=== PATIENT | male | born 1950 | race Caucasian/White ===

== ENCOUNTER → 2016-11-23 | Outpatient (CLI) | payer MEDICAID ==
[2016-11-23 10:41] LABS: Appearance,Urine Clear (Clear); Basophils # (A) 0.1 k/uL (0-0.2); Basophils % (A) 1 %; Bilirubin,Urine Negative (Negative); CH 31.9; CHCM 34.5; Eosinophils # (A) 0.1 k/uL (0-0.7); Eosinophils % (A) 1 %; Glucose,Urine (UA) Negative (Negative); HDW 2.88; HGB 16.6 gm/dL (13.0-17.5); Ketones,Urine Negative (Negative); Leukocyte Esterase,Urine Negative (Negative); Luc # (Auto) 0.06; Luc % (Auto) 1; Lymphocytes % (A) 28 %; MCH 30.9 pg (25.0-35.0); MCHC 33.2 g/dL (31.0-37.0); MCV 93.1 fL (80.0-100.0); Mean Platelet Volume 7.4; Monocytes # (A) 0.3 k/uL (0-1.0); Monocytes % (A) 5 %; Neutrophils # (A) 4.7 k/uL (1.3-7.7); Neutrophils % (A) 65 %; Nitrite,Urine Negative (Negative); Protein,Urine Negative (Negative); RBC 5.37 m/uL (4.30-5.90); RDW 13.5 % (11.5-15.5); Specific Gravity,Urine 1.022 (1.001-1.035); UA Billing (MACRO vs. MICRO) CHEM; Urobilinogen,Urine <2.0 mg/dL (<2.0); WBC 7.2 k/uL (3.8-10.6)
[2016-11-23 10:51] LABS: INR 1.2 (<1.1); Prothrombin Time 11.6 sec (9.0-12.0)
[2016-11-23 10:57] LABS: Partial Thromboplastin Time 21.8 sec (22.0-30.0)
[2016-11-23 11:10] LABS: ALT 93 U/L (21-72); AST 51 U/L (17-59); Alkaline Phosphatase 64 U/L (38-126); Anion Gap 12 mmol/L; Blood Urea Nitrogen 23 mg/dL (9-20); Carbon Dioxide 31 mmol/L (22-30); Chloride 100 mmol/L (98-107); Glucose 174 mg/dL (74-99); Non-African American GFR(MDRD) >60 (>60 ml/min/1.73 sqM); Potassium 4.8 mmol/L (3.5-5.1); Sodium 143 mmol/L (137-145); Total Bilirubin 1.4 mg/dL (0.2-1.3); Total Protein 7.2 g/dL (6.3-8.2)
== END | disposition home or self-care (01) ==
LOC: LABPAT 09:59
PROVIDERS: ATTEND Orthopaedic Surgery Sports Medicine
DX: Z01.812 Encounter for preprocedural laboratory examination (principal)
CPT/HCPCS: 80053; 81003; 85025; 85610; 85730; 87070

== ENCOUNTER → 2016-12-19 | Outpatient (CLI) | payer MEDICAID ==
--- NOTE | 2016-12-19 12:58 | MR ---
MR lumbar spine wo con Low back pain Multiplanar, multiecho imaging of the lumbar spine was obtained without contrast on a 3 Kristy magnet. REFERENCE:None. FINDINGS: Paraspinal soft tissues are normal. Vertebral body height and alignment are maintained. Cord signal is maintained. The conus ends normally at the level of the mid body of L1. At T12-L1, no definite abnormality is seen. At L1-2, there is mild facet arthropathy. At L2-3, there is mild capsulitis and hypertrophic changes within the facets. At L3-4, there is disc space loss. There is a small annular rent. There is a broad-based disc protrus ion extending into the intervertebral foramina causing mild, bilateral intervertebral foraminal narro wing. There are mild hypertrophic changes and capsulitis within the facets. At L4-5, there is mild disc space loss. There is a diffuse disc displacement extending into the inter vertebral foramina and causing mild, bilateral intervertebral foraminal narrowing. There are moderate hypertrophic changes within the facets. There is moderate central canal stenosis. At L5-S1, no definite abnormality is seen. IMPRESSION: 1. MODERATE CENTRAL CANAL STENOSIS, L4-5. 2. DIFFUSE FACET ARTHROPATHY. 3. BILATERAL INTERVERTEBRAL FORAMINAL NARROWING, L3-4 AND L4-5, MORE MARKED AT L3-4. 4. ANNULAR RENT WITH BROAD-BASED PROTRUSION, L3-4.
== END | disposition home or self-care (01) ==
LOC: RADMRIMAIN 11:37
PROVIDERS: ATTEND Orthopaedic Surgery Orthopaedic Surgery of the Spine
DX: M48.06 Spinal stenosis, lumbar region (principal); M99.73 Connective tissue and disc stenosis of intervertebral foramina of lumbar region; M51.26 Other intervertebral disc displacement, lumbar region; M46.86 Other specified inflammatory spondylopathies, lumbar region
CPT/HCPCS: 72148

== ENCOUNTER → 2018-09-17 | Outpatient (CLI) | payer MEDICARE ==
--- NOTE | 2018-09-18 07:20 | US ---
EXAMINATION TYPE: US bladder DATE OF EXAM: 09/17/2018 COMPARISON: NONE CLINICAL HISTORY: R35.1 Nocturia; R35.0 Frequent urination. EXAM MEASUREMENTS: Post Void Residual Volume: 8.58 mL Urinary bladder is anechoic. Bladder is not well distended. Color Doppler performed to assess ureteral jets. Bilateral Jets seen: Yes Normal Post Void Residual (less than 50ml): Yes IMPRESSION: There may be some limitations of the exam as described.
== END | disposition home or self-care (01) ==
LOC: RADUSWWP 15:32
PROVIDERS: ATTEND Family Medicine
DX: R35.1 Nocturia (principal); R35.0 Frequency of micturition
CPT/HCPCS: 76857

== ENCOUNTER 2019-05-16 13:39 | Emergency (ER) | payer MEDICARE ==
[2019-05-16 13:55] VITALS: TEMP 98.1
[2019-05-16] MEDS ORDERED: KETOROLAC 30 MG/ML 1 ML VIAL IM STA (14:18)
--- NOTE | 2019-05-16 14:49 | XR ---
EXAMINATION TYPE: XR Hip Complete LT DATE OF EXAM: 05/16/2019 COMPARISON: NONE HISTORY: Left hip pain after fall a few months ago TECHNIQUE: 2 views of the left hip were obtained FINDINGS: There is an old healed left acetabular fracture that appears well-corticated. No acute frac ture of the left hip is seen. Mild left femoral acetabular arthropathy is noted. Mild left sacroiliac joint space sclerosis is also noted. IMPRESSION: Old left acetabular fracture appears healed. No acute fracture of the left hip. Mild femo ral acetabular arthropathy.
--- NOTE | 2019-05-16 15:44 | ED ---
General Adult HPI - General Chief complaint: Extremity Injury, Lower Stated complaint: Left Hip Pain Time Seen by Provider: 05/16/19 13:57 Source: patient Mode of arrival: wheelchair Limitations: no limitations - History of Present Illness Initial comments: Patient is a 69-year-old male presents emergency Department with left hip pain. Patient reports a karate history of left hip pain that has turned acute or the past 2 days. Patient reports he turned to the right and felt a "pop"which was followed by acute pain. Patient reports the pain is exacerbated with hip flexion and any weightbearing. Patient reports the pain is alleviated with rest or no weightbearing. Patient reports taking ibuprofen and Tylenol for pain control. Patient denies any numbness, tingling or pain radiating distally to the right lower extremity. Patient denies saddle paresthesia or urinary incontinence. - Related Data Home Medications Medication Instructions Recorded Confirmed ALPRAZolam [Xanax] 0.25 mg PO BID PRN 03/25/17 03/25/17 Atenolol/Chlorthalidone 1 each PO DAILY 03/25/17 03/25/17 [Atenolol-Chlorthalidone 100-25] Atorvastatin [Lipitor] 80 mg PO HS 03/25/17 03/25/17 Allergies Allergy/AdvReac Type Severity Reaction Status Date / Time No Known Allergies Allergy Verified 05/16/19 13:49 Review of Systems ROS Statement: Those systems with pertinent positive or pertinent negative responses have been documented in the HPI. ROS Other: All systems not noted in ROS Statement are negative. Past Medical History Past Medical History: Cancer, Hyperlipidemia, Hypertension, Osteoarthritis (OA) Additional Past Medical History / Comment(s): CURRENTLY HAS CALL IN TO SURGEON R/T COLD SYMPTOMS. HX SKIN CAN ON EAR. VERTIGO History of Any Multi-Drug Resistant Organisms: None Reported Past Surgical History: Hernia Repair, Orthopedic Surgery Additional Past Surgical History / Comment(s): LT KNEE SCOPE Past Anesthesia/Blood Transfusion Reactions: Motion Sickness Past Psychological History: Anxiety Smoking Status: Former smoker Past Alcohol Use History: Occasional Past Drug Use History: None Reported - Past Family History Mother Family Medical History: No Reported History General Exam Limitations: no limitations General appearance: alert, in no apparent distress Head exam: Present: atraumatic, normocephalic, normal inspection Eye exam: Present: normal appearance, PERRL, EOMI Pupils: Present: normal accommodation ENT exam: Present: normal exam Neck exam: Present: normal inspection Respiratory exam: Present: normal lung sounds bilaterally Cardiovascular Exam: Present: regular rate, normal rhythm, normal heart sounds Extremities exam: Present: normal inspection, tenderness (Tenderness on left hip with palpation.), normal capillary refill, other (+2 dorsalis pedis and posterior tibialis, bilaterally.). Absent: full ROM (Limited range of motion due to pain.) Back exam: Present: normal inspection Neurological exam: Present: alert, oriented X3 Psychiatric exam: Present: normal affect, normal mood Skin exam: Present: warm, intact, normal color Course Vital Signs 05/16/19 05/16/19 05/16/19 13:51 15:25 16:24 Temperature 98.1 F Pulse Rate 66 86 80 Respiratory 18 16 18 Rate Blood Pressure 146/87 134/72 122/78 O2 Sat by Pulse 98 98 98 Oximetry Medical Decision Making - Medical Decision Making Patient is 69-year-old male presents emergency Department with left hip pain. X-ray of the left hip is suggestive of an acetabular fracture of the left hip which could be the reason of the chronic pain. imaging is also positive for acetabular arthropathy. Patient was given Toradol for pain and will be discharged with Flexeril. Patient advised to follow up with orthopedics. Patient advised to return to emergency department if symptoms worsen. Case discussed with physician. Disposition Clinical Impression: Hip pain Disposition: HOME SELF-CARE Condition: Stable Instructions (If sedation given, give patient instructions): Hip Pain (ED) Additional Instructions: Please take prescribed medication as directed. Please alternate between Tylenol and ibuprofen for pain control. Please follow with orthopedics. Please return to emergency department if symptoms worsen. Is patient prescribed a controlled substance at d/c from ED?: No Referrals: Vito Ruiz MD [Primary Care Provider] - 1-2 days Henri An MD [STAFF PHYSICIAN] - 1-2 days Time of Disposition: 15:44
[2019-05-16 16:25] VITALS: BP 122/78; PULSE 80; RESP 18
== END 2019-05-16 16:30 | disposition home or self-care (01) ==
LOC: EC 13:39
DX: M25.552 Pain in left hip (principal); M16.12 Unilateral primary osteoarthritis, left hip; E78.5 Hyperlipidemia, unspecified; I10 Essential (primary) hypertension; F41.9 Anxiety disorder, unspecified; Z79.899 Other long term (current) drug therapy; Z87.891 Personal history of nicotine dependence; Z85.828 Personal history of other malignant neoplasm of skin
CPT/HCPCS: 73502; 99283; 96372; J1885

== ENCOUNTER → 2020-09-12 | Outpatient (CLI) | payer MEDICARE ==
[2020-09-12 16:22] LABS: HCT 42.1 % (39.0-53.0); HGB 14.1 gm/dL (13.0-17.5); MCH 31.8 pg (25.0-35.0); MCHC 33.5 g/dL (31.0-37.0); Platelet Count 190 k/uL (150-450); RBC 4.43 m/uL (4.30-5.90); RDW 13.3 % (11.5-15.5); WBC 4.3 k/uL (3.8-10.6)
[2020-09-12 16:29] LABS: ALT 26 U/L (4-49); AST 30 U/L (17-59); African American GFR (CKD) >90 (>60 ml/min/1.73 sqM); Alkaline Phosphatase 61 U/L (38-126); Anion Gap 7 mmol/L; Blood Urea Nitrogen 13 mg/dL (9-20); Calcium 8.8 mg/dL (8.4-10.2); Carbon Dioxide 25 mmol/L (22-30); Chloride 107 mmol/L (98-107); Glucose 218 mg/dL (74-99); Non-African American GFR(CKD) 89 (>60 ml/min/1.73 sqM); Sodium 139 mmol/L (137-145); Total Bilirubin 0.8 mg/dL (0.2-1.3); Total Protein 6.6 g/dL (6.3-8.2)
[2020-09-12 16:38] LABS: INR 1.1 (<1.2); Partial Thromboplastin Time 22.4 sec (22.0-30.0); Prothrombin Time 11.3 sec (9.0-12.0)
[2020-09-12 17:12] LABS: Appearance,Urine Clear (Clear); Bilirubin,Urine Negative (Negative); Blood,Urine Negative (Negative); Color,Urine Yellow; Glucose,Urine (UA) Negative (Negative); Ketones,Urine Negative (Negative); Leukocyte Esterase,Urine Negative (Negative); Nitrite,Urine Negative (Negative); Protein,Urine Negative (Negative); Specific Gravity,Urine 1.023 (1.001-1.035); Urobilinogen,Urine <2.0 mg/dL (<2.0)
== END | disposition home or self-care (01) ==
LOC: LABPAT 15:20
PROVIDERS: ATTEND Orthopaedic Surgery Sports Medicine
DX: Z01.818 Encounter for other preprocedural examination (principal); M17.12 Unilateral primary osteoarthritis, left knee; Z01.812 Encounter for preprocedural laboratory examination
CPT/HCPCS: 80053; 81003; 85027; 85610; 85730; 87070

== ENCOUNTER 2020-09-15 09:24 | Inpatient (IN) | payer MEDICARE ==
[2020-09-12 09:49] VITALS: BMI 29.9
[~2020-09-15 09:24] MED LIST: ACETAMINOPHEN TAB 500 MG TAB PO ONE; DEXAMETHASONE SOD PHOSPHATE 10 MG/ML 1 ML VIAL IV ONE; GABAPENTIN 300 MG CAP PO ONE; HYDROmorphone 0.5 MG/0.5 ML SYRINGE IVP PRN; LACTATED RINGERS 1,000 ML IV SCH; MELOXICAM 7.5 MG TAB PO ONE; MIDAZOLAM 2 MG/2 ML VIAL IV PRN; ONDANSETRON 4 MG/2 ML VIAL IVP ONE; ROPIVACAINE 246.25 MG, EPINEPHrine 0.5 MG, KETOROLAC 30 MG, cloNIDine HCL/PF 80 MCG, WA... MISCELLANE ONE; TRANEXAMIC ACID 1,000 MG in SODIUM CHLORIDE 0.9% 100 ML IVPB ONE
[2020-09-15 09:55] LABS: Glucose,Whole Blood 135 mg/dL (75-99)
[2020-09-15] MEDS ORDERED: SCOPOLAMINE 1.5MG/72HR PATCH TRANSDERM ONE (09:59)
[2020-09-15] MEDS ORDERED: PROPOFOL 10 MG/ML 20 ML VIAL IV ONE (10:19)
[2020-09-15] MEDS ORDERED: fentaNYL (PF) 50 MCG/ML 2 ML AMP ONE (10:19)
[2020-09-15] MEDS ORDERED: ePHEDrine SULFATE/0.9% NACL/PF 50 MG/5 ML SYRINGE IV ONE (10:19)
[2020-09-15] MEDS ORDERED: MIDAZOLAM 2 MG/2 ML VIAL ONE (10:19)
[2020-09-15] MEDS ORDERED: TRANEXAMIC ACID 1,000 MG/10 ML VIAL ONE (10:19)
[2020-09-15] MEDS ORDERED: SODIUM CHLORIDE 0.9% 100 ML BAG ONE (10:19)
[2020-09-15] MEDS ORDERED: MAGNESIUM HYDROXIDE 2,400 MG/10 ML CUP PO PRN (10:38)
[2020-09-15] MEDS ORDERED: ONDANSETRON 4 MG/2 ML VIAL IVP PRN (10:38)
[2020-09-15] MEDS ORDERED: NA PHOS,M-B/NA PHOS,DI-BA 133 ML ENEMA RECTAL PRN (10:38)
[2020-09-15] MEDS ORDERED: TEMAZEPAM 15 MG CAP PO PRN (10:38)
[2020-09-15] MEDS ORDERED: diazePAM 5 MG TAB PO PRN (10:38)
[2020-09-15] MEDS ORDERED: ACETAMINOPHEN TAB 325 MG TAB PO PRN (10:38)
[2020-09-15] MEDS ORDERED: HYDROmorphone 0.5 MG/0.5 ML SYRINGE IVP PRN ×2 (10:38)
[2020-09-15] MEDS ORDERED: bisacodyL 10 MG SUPP RECTAL PRN (10:38)
[2020-09-15] MEDS ORDERED: traMADol 50 MG TAB PO PRN (10:38)
[2020-09-15] MEDS ORDERED: NALOXONE 0.4 MG/ML 1 ML VIAL IV PRN (10:38)
[2020-09-15] MEDS ORDERED: HYDROcodone/APAP 5-325MG 1 EACH TAB PO PRN (10:38)
[2020-09-15] MEDS ORDERED: ceFAZolin 3,000 MG in SODIUM CHLORIDE 0.9% IRRIGATIO 3,000 ML IRRIGATION ONE (10:54)
[2020-09-15] MEDS ORDERED: LACTATED RINGERS 1,000 ML IV ONE (12:01)
[2020-09-15] MEDS ORDERED: ROPIVACAINE 0.2%-NS ON-Q PUMP 1,090 MG, EMPTY PAIN BALL 1 EACH MISCELLANE PRN (12:18)
--- NOTE | 2020-09-15 12:18 | P.ANPRN ---
Procedure Note - Anesthesia - Nerve Block Performed Left Adductor Canal Infusion Time Out Performed: Yes (1000) Date of Procedure: 09/15/20 Procedure Start Time: : Procedure Stop Time: :08 Location of Patient: PreOp Indication: Acute Post-Operative Pain, Requested by Surgeon Specifically requested for management of pain by DrWinnie: Henri An Sedation Type: Sedate with meaningful contact maintained Preparation: Sterile Prep Position: Supine Catheter Depth at Skin (cm): 6 Catheter: Indwelling Needle Types: Pajunk Needle Gauge: 21 Ultrasound used to visualize needle placement: Yes Ultrasound used to observe medication spread: Yes Injectate: 0.5% Ropivacaine (see comment for volume) (20cc) Blood Aspirated: No Pain Paresthesia on Injection Noted: No Resistance on Injection: Normal Image Stored and Saved: Yes Events: Uneventful and Well Tolerated
--- NOTE | 2020-09-15 13:05 | XR ---
Left knee HISTORY: Postop 2 views of left knee Patient is status post left knee arthroplasty. There is anatomic alignment. Lucency is present in the soft tissues. No fracture or dislocation. IMPRESSION: Orthopedic follow-up.
[2020-09-15] MEDS: LACTATED RINGERS 1,000 ML IV SCH ×2 (14:25→20:31)
--- NOTE | 2020-09-15 15:41 | OP ---
OPERATIVE REPORT DATE OF PROCEDURE: 09/15/2020 SURGEON: Henri An M.D. KNITTER HAND: Wesley Calzada PA-C. PREOPERATIVE DIAGNOSIS: Left knee osteoarthrosis. POSTOPERATIVE DIAGNOSIS: Left knee osteoarthrosis. OPERATION: Left total knee arthroplasty. ANESTHESIA: Spinal with sedation. ESTIMATED BLOOD LOSS: 100 mL. TOURNIQUET: Tourniquet time was 55 minutes at 250 mmHg. COMPLICATIONS: None apparent. DRAINS: None. DISPOSITION: Post-Anesthesia Care Unit INDICATIONS: Isidro is a very pleasant 70-year-old male with longstanding history of left knee pain. History and physical examination are consistent with advanced left knee osteoarthrosis. He has been through significant nonoperative management up to this point. Further treatment options were discussed, and he decided to go forward with left total knee arthroplasty. Risks of the procedure were discussed with him in detail. These risks include but are not limited to risk of infection, nerve damage, bleeding, pain, and a small risk of deep vein thrombosis which could lead to fatal pulmonary embolism. There is also a risk of loosening of the implant which could require revision operation. The patient understands these risks. All of his questions were answered to his satisfaction. Appropriate informed consent was obtained. DESCRIPTION OF PROCEDURE: Patient was identified in the preoperative holding area. Surgical site was marked by both the patient and myself. He was given 2 grams of Ancef IV for prophylactic purposes. He was then transferred to the operative suite, where he was placed supine on the operating room table. Spinal anesthetic was then administered and dosed per the anesthesia department without apparent complication. Examination under anesthesia was then performed. The patient was 5 to 7 degrees shy of full extension. He had 95 degrees of flexion, and the medial collateral ligament, lateral collateral ligament and posterior cruciate ligaments were stable. Tourniquet was then placed high on the left upper thigh, well padded in preparation for surgery. The patient's left lower extremity was then prepped and draped in the usual sterile fashion. A standard surgical pause was undertaken to ensure that we were operating on the correct site and that appropriate preoperative antibiotics had been given. All staff in the room were in agreement and we proceeded. The outlines of the patella were marked with a surgical pen. A planned 12 cm vertical incision centered over the patella was marked with a surgical pen. The leg was then exsanguinated with an Esmarch dressing. The knee was then flexed and the tourniquet was inflated to 250 mmHg. The total tourniquet time for the procedure was 55 minutes. Incision was then made with a 10-blade scalpel. Dissection was carried down sharply to the overlying fascia. Great care was taken to minimize the skin flaps. The knee was then exposed using a standard medial parapatellar approach. A small cuff of quadriceps tendon was then left for suturing. He was in quite a bit of varus preoperatively. A standard medial release was then made. The superficial medical collateral ligament was dissected off of the bone around to the posterior aspect of the proximal tibia. The medial meniscus was then excised as well. The lateral meniscus was also released anteriorly. The leg was then externally rotated. The patella was everted. The knee was flexed. The retractors were then placed to protect the collateral ligaments. I then proceeded to remove the infrapatellar fat pad. This was excised sharply tangentially with the fibers of the patellar tendon. I then proceeded to remove the peripheral osteophytes. This was done with a rongeur. I then proceeded with the distal femoral resection. He had a fairly significant flexion contracture. A planned 11 mm resection was then done. The femoral canal was then entered in the midline of the femur, approximately 10 mm anterior to the origin of the posterior cruciate ligament. The maria was then advanced down the center of the femur and placed intramedullary. Based on the preoperative radiographs, the angle between the anatomic and mechanical axis of the femur was approximately 4-5 degrees. The valgus angle of the distal femoral cutting guide was then set at 4 degrees for the left knee. The distal femoral cutting guide was then advanced over the intramedullary maria. This was seated firmly against the femur. I then, as mentioned, planned to take 11 mm off the distal femur. The cutting block was then secured onto the femur with pins. The jig was removed and the distal femoral cut was made through the slot of the block. The pins were then removed. The distal femoral cutting block was removed. The accuracy of the distal femoral cuts was checked with 2 flat bars. I then proceeded with femoral sizing. The posterior referencing sizing guide was held firmly against the resected distal surface of the femur. The posterior condyles were resting on the posterior plane of the guide. The sizing stylus was then placed onto the anterior femur. The size was measured as a size 9. I then assessed for femoral rotation. The plan was for 3 degrees of external rotation. Three degrees of external rotation was placed onto the jig. These holes were then marked. I then confirmed the rotation by 3 separate methods. This was done using the epicondylar axis as well as Whitesides line and posterior referencing. It was deemed that the external rotation was proper. I then went forward with placing the femoral cutting block. This was placed over the previously placed pin holes. The Efra wing was then placed onto the anterior slots to ensure that we would not notch the anterior femur with the anterior femoral cut. I then proceeded with the anterior femoral cut. This was flush with the anterior cortex of the femur. The posterior cuts were then made followed by the anterior chamfer cut and then the posterior chamfer cut. The cutting block was then removed. Throughout the resection, the collateral ligaments were protected with retractors. I then placed a trial size 9 femur. It was slightly wide, but the narrow fit very nicely, and it fit flush with the distal end of the femur. The drill holes were then made. I then proceeded with the tibial cut. I planned for a cruciate-retaining knee. The guide was placed and set for varus, valgus and for slope. The height was set for an approximate 2 mm resection from the medial tibial plateau, which was the lower side. I was happy with the alignment and amount of resection. The cutting block was then pinned to the proximal tibia. The alignment maria was removed and the proximal tibia was resected with a reciprocating saw. Again this was done with retractors protecting the collateral ligaments as well as the posterior cruciate ligament. I then proceeded to evaluate the flexion and extension gaps. A 10 mm block was then placed. The flexion and extension gaps were equal. I then proceeded with resection of the posterior osteophytes. He had fairly extensive posterior osteophytes. This was done using a curved osteotome. This resected the posterior osteophytes, and posterior capsule stripping was done off the posterior aspect of the femur at this time. The osteophytes were then removed. I then proceeded with resection of the patella. The thickness of the patella was measured using the caliper. The thickness was 22 mm. The thickness of the anticipated patellar dome was taken into account. Resection was then performed and confirmed to be equal in 4 quadrants using a caliper. Approximately 14 mm of bone remained after resection. A 32 x 8.5 mm standard patellar trial was then placed. The holes were drilled and the trial was then placed. I then proceeded with sizing the tibial plate. A size E tibial plate fit very nicely. I then placed the trial femur, the tibial tray and the patellar button. A 10 mm trial tibial insert was also placed. The components fit very nicely. He had full extension and flexion. The extension and flexion gaps were equal and stable to both varus and valgus stress. The patella tracked appropriately. The tibial tray rotation was then marked with a Bovie. This was externally rotated properly. I then proceeded with the tibial preparation. First we drilled femoral holes and removed the femoral component. The tibial tray was then set for proper external rotation as well as mediolateral placement onto the tibia. It was then pinned into place. I then proceeded with punching the keel. I then decided to proceed with cementing of all of our components. The knee was thoroughly irrigated with sterile saline solution via pulse lavage. The lateral geniculate artery was identified and cauterized. All blood was removed from the bone of the tibia, femur and patella with pulse lavage. I then proceeded with cementing. Two packs of antibiotic bone cement were prepared on the back table by the surgical nurse. I then proceeded with cementing of the tibia first. The cement was impacted into the keel as well as deeply seated into the bone. A second coat of cement was then placed. The tibia was then impacted into place. Excess cement was removed with Shannon's and jokers. I then proceeded with cementing of the femoral component. The femoral component was also cemented using standard technique. Excess cement was removed. A 10 mm trial insert was then placed into the knee. It was brought into full extension with a constant axial load placed until the cement had hardened. The patellar component was then cemented. This was held firmly with a compressive device until the cement had dried. When the cement had dried, the knee was taken out of extension. All excess cement was removed from around the prosthesis. I then trialed the knee with a 10 mm insert. The flexion and extension gaps were appropriate. The knee was stable. It came into full extension. I decided to go forward with a 10 mm cross-linked cruciate-retaining tibial insert. Polyethylene was then placed onto the tibial tray and locked into place. The knee was then reduced. The knee was again further irrigated with sterile saline solution with antibiotic added. The tourniquet was then deflated. The total tourniquet time for the procedure was 55 minutes at 250 mmHg. Final components were Tomas Persona size 9 narrow cruciate-retaining femoral component, a size E tibial tray, a 10 mm medial- congruent cruciate-retaining polyethylene insert and a 32 x 8.5 mm patella. I then proceeded with closure. Again, the knee was thoroughly irrigated. The quadriceps tendon and the medial retinaculum were reapproximated with #2 Ethibond suture. The extensor mechanism was then closed with a running #2 Quill suture. Subcutaneous tissues were closed with 2-0 Vicryl interrupted suture. The skin was closed with a running 3-0 Quill suture. Dermabond was applied to the incision. Sterile compressive dressings were then applied. All sponge and needle counts were deemed correct prior to closure. The patient tolerated the procedure without apparent complication. He was transferred to the recovery room in stable condition. MMODL / IJN: [id number] /
[2020-09-15] MEDS ORDERED: ALPRAZolam 0.25 MG TAB PO PRN (16:35)
[2020-09-15] MEDS ORDERED: IBUPROFEN 800 MG TAB PO PRN (16:35)
[2020-09-15] MEDS: HYDROcodone/APAP 10-325MG 1 EACH TAB PO PRN (19:37)
[2020-09-15] MEDS: GABAPENTIN 400 MG CAP PO SCH (20:31)
[2020-09-15] MEDS: SENNOSIDES-DOCUSATE SODIUM 1 EACH TAB PO SCH (20:31)
[2020-09-15] MEDS: DONEPEZIL 10 MG TAB PO SCH (20:31)
[2020-09-15] MEDS: ASPIRIN 81 MG PO SCH (20:31)
[2020-09-15] MEDS: traZODone HCL 100 MG TAB PO SCH (20:31)
[2020-09-16] MEDS: HYDROcodone/APAP 10-325MG 1 EACH TAB PO PRN ×4 (01:38→23:52)
[2020-09-16 06:20] LABS: Basophils % (A) 0 %; Eosinophils # (A) 0.1 k/uL (0-0.7); Eosinophils % (A) 1 %; HGB 12.5 gm/dL (13.0-17.5); Lymphocytes # (A) 0.7 k/uL (1.0-4.8); Lymphocytes % (A) 7 %; MCH 31.5 pg (25.0-35.0); MCHC 32.8 g/dL (31.0-37.0); Mean Platelet Volume 7.4; Monocytes # (A) 0.5 k/uL (0-1.0); Monocytes % (A) 5 %; Neutrophils # (A) 9.1 k/uL (1.3-7.7); Neutrophils % (A) 87 %; Platelet Count 187 k/uL (150-450); RBC 3.96 m/uL (4.30-5.90); RDW 13.3 % (11.5-15.5); WBC 10.5 k/uL (3.8-10.6)
--- NOTE | 2020-09-16 08:04 | P.PN ---
Progress Note - Text The patient is status post left adductor canal catheter placement. The catheter was placed for postoperative pain control, status post total left arthroplasty. Ropivacaine 0.2% is infusing at 8 mLs per hour. The patient has no complaints of left lower extremity numbness or weakness. Patient's VAS score is 56 -10. The pain is located primarily in the lateral aspect of the knee. Assessment: Patient's adductor canal catheter is in place and working appropriately. Plan: continue infusion and adjust it as needed.
[2020-09-16] MEDS: ASPIRIN 81 MG PO SCH ×2 (08:27→21:10)
[2020-09-16] MEDS: lisinopriL 20 MG TAB PO SCH (08:28)
[2020-09-16] MEDS: atenoloL 50 MG TAB PO SCH (08:28)
[2020-09-16] MEDS: CHLORTHALIDONE 25 MG TAB PO SCH (08:28)
[2020-09-16] MEDS: CITALOPRAM HYDROBROMIDE 20 MG TAB PO SCH (08:29)
--- NOTE | 2020-09-16 10:07 | P.PN ---
Subjective Progress Note Date: 09/16/20 Principal diagnosis: Left TKA Patient is seen at bedside this morning. He is postop day #1 from left total knee arthroplasty. He has pain at the surgical site as expected but denies any new complaints. He denies numbness, tingling or calf pain. Review of systems is negative for fever, chills, chest pain, shortness of breath or other Objective - Vital Signs Vital signs: Vital Signs Temp 97.6 F 09/16/20 08:04 Pulse 63 09/16/20 08:04 Resp 14 09/16/20 08:04 BP 128/69 09/16/20 08:04 Pulse Ox 95 09/16/20 08:04 Intake & Output 09/15/20 09/16/20 09/16/20 18:59 06:59 18:59 Intake Total 1691 Output Total 270 600 Balance 1421 -600 Weight 97.522 kg Intake: IV 1251 Intake, IV Titration 200 Amount Lactated Ringers 1,000 ml 200 @ 100 mls/hr IV .Q10H KRISTINA Rx#:[id number] Oral 240 Output: Urine 170 600 Estimated Blood Loss 100 Other: # Voids 1 2 - Exam Inspection reveals a benign surgical wound. There is no active bleeding or drainage. Neurovascular status is intact throughout the lower extremity with motor and sensation fully intact. Calf is soft and nontender. 2+ dorsalis pedis pulse and less than 2 second cap refill is present. - Constitutional General appearance: Present: no acute distress - Labs CBC & Chem 7: 09/16/20 05:27 Labs: Abnormal Lab Results - Last 24 Hours (Table) 09/16/20 Range/Units 05:27 RBC 3.96 L (4.30-5.90) m/uL Hgb 12.5 L (13.0-17.5) gm/dL Hct 38.0 L (39.0-53.0) % Neutrophils # 9.1 H (1.3-7.7) k/uL Lymphocytes # 0.7 L (1.0-4.8) k/uL Assessment and Plan (1) Status post total left knee replacement Narrative/Plan: He will continue with routine postop orthopedic protocol including pain management, wound care, PT, DVT prophylaxis and medical management. Expect that he will transfer to home tomorrow Current Visit: Yes Status: Acute Priority: Medium Code(s): Z96.652 - PRESENCE OF LEFT ARTIFICIAL KNEE JOINT SNOMED Code(s): 4054362029561 Time with Patient: Less than 30
[2020-09-16] MEDS: MULTIVITAMINS, THERA 1 EACH TAB PO SCH (11:52)
[2020-09-16] MEDS: LACTATED RINGERS 1,000 ML IV SCH ×2 (14:43→14:44)
[2020-09-16] MEDS: SENNOSIDES-DOCUSATE SODIUM 1 EACH TAB PO SCH (21:10)
[2020-09-16] MEDS: traZODone HCL 100 MG TAB PO SCH (21:10)
[2020-09-16] MEDS: DONEPEZIL 10 MG TAB PO SCH (21:10)
[2020-09-16] MEDS: GABAPENTIN 400 MG CAP PO SCH (21:10)
[2020-09-16] MEDS: HYDROmorphone 0.5 MG/0.5 ML SYRINGE IVP PRN (21:12)
[2020-09-17] MEDS: LACTATED RINGERS 1,000 ML IV SCH ×3 (01:02→19:57)
[2020-09-17] MEDS: HYDROmorphone 0.5 MG/0.5 ML SYRINGE IVP PRN ×4 (01:15→13:03)
[2020-09-17] MEDS: HYDROcodone/APAP 10-325MG 1 EACH TAB PO PRN ×3 (07:55→23:01)
[2020-09-17] MEDS: CHLORTHALIDONE 25 MG TAB PO SCH (07:55)
[2020-09-17] MEDS: MULTIVITAMINS, THERA 1 EACH TAB PO SCH (07:55)
[2020-09-17] MEDS: ASPIRIN 81 MG PO SCH ×2 (07:55→20:05)
[2020-09-17] MEDS: lisinopriL 20 MG TAB PO SCH (07:55)
[2020-09-17] MEDS: CITALOPRAM HYDROBROMIDE 20 MG TAB PO SCH (07:56)
[2020-09-17] MEDS: atenoloL 50 MG TAB PO SCH (07:56)
[2020-09-17] MEDS ORDERED: HYDROcodone/APAP 10-325MG 1 EACH TAB PO PRN (09:14)
--- NOTE | 2020-09-17 09:18 | P.PN ---
Subjective Progress Note Date: 09/17/20 Principal diagnosis: Left TKA Patient is seen at bedside this morning. He is postop day #2 from left total knee arthroplasty. He has pain at the surgical site as expected but denies any new complaints. He denies numbness, tingling or calf pain. Review of systems is negative for fever, chills, chest pain, shortness of breath or other Objective - Vital Signs Vital signs: Vital Signs Temp 98.3 F 09/17/20 07:00 Pulse 57 L 09/17/20 07:00 Resp 16 09/17/20 07:00 BP 106/59 09/17/20 07:00 Pulse Ox 95 09/17/20 07:00 Intake & Output 09/16/20 09/17/20 09/17/20 18:59 06:59 18:59 Other: Voiding Method Toilet # Voids 2 2 - Exam Inspection reveals a benign surgical wound. There is no active bleeding or drainage. Neurovascular status is intact throughout the lower extremity with motor and sensation fully intact. Calf is soft and nontender. 2+ dorsalis pedis pulse and less than 2 second cap refill is present. - Constitutional General appearance: Present: no acute distress - Labs CBC & Chem 7: 09/16/20 05:27 Assessment and Plan (1) Status post total left knee replacement Narrative/Plan: He will continue with routine postop orthopedic protocol including pain management, wound care, PT, DVT prophylaxis and medical management. He continue to struggle some with post op pain. Will adjust oral pain medication. Expect that he will transfer to home later today or tomorrow Current Visit: Yes Status: Acute Priority: Medium Code(s): Z96.652 - PRESENCE OF LEFT ARTIFICIAL KNEE JOINT SNOMED Code(s): 9745315249729 Time with Patient: Less than 30
--- NOTE | 2020-09-17 15:31 | PN ---
PROGRESS NOTE DATE OF SERVICE: 09/16/2020 CHIEF COMPLAINT: Status post left TKA. HISTORY OF PRESENT ILLNESS: This gentleman is doing fairly well. He is having quite a bit of discomfort, but other than that he is stable. He has had no chest pain, shortness of breath, fever, chills, etc. PHYSICAL EXAMINATION: Color is good. Hydration is good. Head, eyes, ears, nose, mouth, and throat are normal. Chest is clear. No rales or rhonchi. Cardiac exam is normal sinus rhythm and no murmurs. Abdomen is soft and there are no masses or visceromegaly. Extremities are unchanged. IMPRESSION: Status post left total knee arthroplasty. PLAN: Continue to follow and try to help with his discomfort. MMODL / IJN: [id number] /
--- NOTE | 2020-09-17 15:49 | PN ---
PROGRESS NOTE DATE OF SERVICE: 09/17/2020 CHIEF COMPLAINT: Status post left knee replacement. HISTORY OF PRESENT ILLNESS: This gentleman is doing fairly well. He has had no fever or chills. He is not nauseated. He has had no chest pain. He is still having quite a bit of pain, however. PHYSICAL EXAMINATION: Chest is clear. Cardiac exam is normal. Abdomen is soft, nontender. IMPRESSION: Status post left knee replacement. PLAN: Await arrangements for discharge by Orthopedics. MMODL / IJN: [id number] /
--- NOTE | 2020-09-17 15:55 | CONS ---
CONSULTATION CHIEF COMPLAINT: Arthritis of the left knee. HISTORY OF PRESENT ILLNESS: Details of this gentleman's admitting history can be found in his admitting notes. He has a history of progressive arthritic pain in both knees. He also has mild dementia and mild hypertension. REVIEW OF SYSTEMS: He has had no headaches, focal neurologic problems, difficulty with vision or hearing, chest pain, shortness of breath, cough, hemoptysis, heart disease, murmurs, rheumatic fever, orthopnea, PND, abdominal pain, nausea, vomiting, hematemesis, melena, hematochezia, colitis, diverticulosis, diverticulitis, hemorrhoids, jaundice, hepatitis, renal failure, frequency, urgency, dysuria, incontinence, nocturia, etc. Past medical history, family history, personal and social histories can all be found in his admitting summary. PHYSICAL EXAMINATION: Blood pressure is 135/86 with a pulse of 79, respirations 32, and he is afebrile. In general, he appeared to be well developed, well nourished, no acute distress. Skin color is normal. Skin is warm, dry. Lymph nodes not enlarged. Head, ears, eyes, nose, mouth, and throat were normal. Neck veins not distended. Thyroid not enlarged. Chest is clear. Cardiac exam is normal. Abdomen is soft, nontender. Extremities are normal except for the left knee which was dressed. Dressing is dry. Pulses are good. IMPRESSION: 1. Osteoarthritis left knee. 2. Mild hypertension. 3. Early dementia, Alzheimer's type. RECOMMENDATIONS: None. He is doing well and should be able to go home fairly quickly after surgery. MMODL / IJN: [id number] /
[2020-09-17] MEDS: SENNOSIDES-DOCUSATE SODIUM 1 EACH TAB PO SCH (20:05)
[2020-09-17] MEDS: DONEPEZIL 10 MG TAB PO SCH (20:05)
[2020-09-17] MEDS: traZODone HCL 100 MG TAB PO SCH (20:05)
[2020-09-17] MEDS: oxyCODONE ER 10 MG TAB.ER.12H PO SCH (20:06)
[2020-09-17] MEDS: GABAPENTIN 400 MG CAP PO SCH (20:06)
[2020-09-18 06:24] LABS: Basophils % (A) 0 %; Eosinophils # (A) 0.1 k/uL (0-0.7); Eosinophils % (A) 2 %; HCT 31.9 % (39.0-53.0); HGB 10.8 gm/dL (13.0-17.5); Lymphocytes # (A) 1.2 k/uL (1.0-4.8); Lymphocytes % (A) 21 %; MCH 32.2 pg (25.0-35.0); MCHC 33.7 g/dL (31.0-37.0); MCV 95.6 fL (80.0-100.0); Mean Platelet Volume 7.4; Monocytes # (A) 0.4 k/uL (0-1.0); Monocytes % (A) 6 %; Neutrophils # (A) 4.2 k/uL (1.3-7.7); Neutrophils % (A) 70 %; Platelet Count 163 k/uL (150-450); RBC 3.34 m/uL (4.30-5.90); RDW 13.2 % (11.5-15.5); WBC 5.9 k/uL (3.8-10.6)
[2020-09-18] MEDS: LACTATED RINGERS 1,000 ML IV SCH (09:00)
[2020-09-18] MEDS: ASPIRIN 81 MG PO SCH (09:00)
[2020-09-18] MEDS: MULTIVITAMINS, THERA 1 EACH TAB PO SCH (09:00)
[2020-09-18] MEDS: CHLORTHALIDONE 25 MG TAB PO SCH (09:00)
[2020-09-18] MEDS: CITALOPRAM HYDROBROMIDE 20 MG TAB PO SCH (09:00)
[2020-09-18] MEDS: oxyCODONE ER 10 MG TAB.ER.12H PO SCH (09:00)
[2020-09-18] MEDS: atenoloL 50 MG TAB PO SCH (09:00)
[2020-09-18] MEDS: lisinopriL 20 MG TAB PO SCH (09:00)
[2020-09-18] MEDS: HYDROcodone/APAP 10-325MG 1 EACH TAB PO PRN (14:12)
[2020-09-18 14:41] VITALS: BP 117/57; PULSE 61; RESP 19; TEMP 98.9
--- NOTE | 2020-09-18 14:49 | P.DS ---
Providers Date of admission: 09/17/20 10:34 Expected date of discharge: 09/18/20 Attending physician: Henri An Consults: 09/15/20 10:38 Consult Physician Routine Consulting Provider: Vito Ruiz Consult Reason/Comments: post op medical management Do you want consulting provider notified?: Yes Primary care physician: Vito Ruiz - Discharge Diagnosis(es) (1) Status post total left knee replacement Patient was admitted to the OR on 09/15/2020 to undergo a left total knee arthroplasty. He had failed conservative measures as an outpatient and desired to proceed with elective surgery after given informed consent. He underwent the above procedure which he tolerated well without complication. Postoperative hospital course has remained without complication. On day of discharge he is afebrile, vital signs stable, labs within acceptable ranges, tolerating by mouth meds and diet, voiding without difficulty, positive flatus, denies abdominal pa in or calf pain, pain is controlled on oral pain medication and has no new complaints. Wound is benign, neurovascular status is intact, calf is soft and nontender, abdomen soft and nontender. Review of systems is negative for numbness, tingling, fever, chills, chest pain, shortness of breath, nausea, vomiting, dizziness, headaches, slurred speech or other. Current Visit: Yes Status: Acute Priority: Medium Procedures: Left TKA Patient Condition at Discharge: Good Plan - Discharge Summary Discharge Rx Participant: Yes New Discharge Prescriptions: New Aspirin [Adult Low Dose Aspirin EC] 81 mg PO BID #60 tablet. Docusate [Colace] 100 mg PO BID #60 capsule HYDROcodone/APAP 10-325MG [[place] 10-325] 1 tab PO Q4HR PRN #42 tab PRN Reason: Pain oxyCODONE ER [OxyCONTIN] 10 mg PO Q12HR 5 Days #10 tab No Action ALPRAZolam [Xanax] 0.25 mg PO BID PRN PRN Reason: Anxiety Atorvastatin [Lipitor] 80 mg PO HS Donepezil [Aricept] 10 mg PO HS lisinopriL [Zestril] 20 mg PO DAILY Gabapentin [Neurontin] 800 mg PO HS traZODone HCL 100 mg PO HS Citalopram Hydrobromide [Citalopram HBr] 40 mg PO DAILY Atenolol/Chlorthalidone [Atenolol-Chlorthalidone 50-25] 1 each PO DAILY Ibuprofen [Motrin] 800 mg PO Q8H PRN PRN Reason: Pain Discharge Medication List ALPRAZolam [Xanax] 0.25 mg PO BID PRN 03/25/17 [History] Atorvastatin [Lipitor] 80 mg PO HS 03/25/17 [History] Atenolol/Chlorthalidone [Atenolol-Chlorthalidone 50-25] 1 each PO DAILY 09/12/20 [History] Citalopram Hydrobromide [Citalopram HBr] 40 mg PO DAILY 09/12/20 [History] Donepezil [Aricept] 10 mg PO HS 09/12/20 [History] Gabapentin [Neurontin] 800 mg PO HS 09/12/20 [History] Ibuprofen [Motrin] 800 mg PO Q8H PRN 09/12/20 [History] lisinopriL [Zestril] 20 mg PO DAILY 09/12/20 [History] traZODone HCL 100 mg PO HS 09/12/20 [History] Aspirin [Adult Low Dose Aspirin EC] 81 mg PO BID #60 tablet. 09/18/20 [Rx] Docusate [Colace] 100 mg PO BID #60 capsule 09/18/20 [Rx] HYDROcodone/APAP 10-325MG [[place] 10-325] 1 tab PO Q4HR PRN #42 tab 09/18/20 [Rx] oxyCODONE ER [OxyCONTIN] 10 mg PO Q12HR 5 Days #10 tab 09/18/20 [Rx] Follow up Appointment(s)/Referral(s): [facility], [NON-STAFF] - As Needed Henri An MD [STAFF PHYSICIAN] - 10 Days Activity/Diet/Wound Care/Special Instructions: Take meds as directed Keep wound clean and dry F/U in office Weight bear as tolerated May shower in 3 days if no bleeding Discharge Disposition: HOME WITH HOME HEALTH SERVICES
--- NOTE | 2020-09-18 16:37 | PN ---
PROGRESS NOTE DATE OF SERVICE: 09/18/2020 CHIEF COMPLAINT: Status post left knee replacement. HISTORY OF PRESENT ILLNESS: This gentleman is doing better today. His pain is a little bit more manageable. He will be going home. REVIEW OF SYSTEMS: He has had no chest pain, fever, chills, nausea etc. PHYSICAL EXAMINATION: Chest is clear. Cardiac exam is normal. Abdomen is soft, nontender. IMPRESSION: Status post left knee replacement. PLAN: Home today. MMODL / IJN: [id number] /
== END 2020-09-18 15:45 | disposition home health service (06) | DRG 470 ==
LOC: OR 09:24 → 4SSUR 12:19 → OR 09-16 12:13 → OBSVTOIN 09-17 10:34
PROVIDERS: ADMIT Orthopaedic Surgery Sports Medicine; ATTEND Orthopaedic Surgery Sports Medicine
PROC: 0SRD0J9 Replacement of Left Knee Joint with Synthetic Substitute, Cemented, Open Approach (ICD-10-PCS; principal; 2020-09-15 11:40)
DX: M17.12 Unilateral primary osteoarthritis, left knee (principal); G30.0 Alzheimer's disease with early onset; F02.80 Dementia in other diseases classified elsewhere, unspecified severity, without behavioral disturbance, psychotic disturbance, mood disturbance, and anxiety; E78.5 Hyperlipidemia, unspecified; I10 Essential (primary) hypertension; M17.11 Unilateral primary osteoarthritis, right knee; M21.162 Varus deformity, not elsewhere classified, left knee; M21.161 Varus deformity, not elsewhere classified, right knee; H91.90 Unspecified hearing loss, unspecified ear; Z79.899 Other long term (current) drug therapy; Z87.891 Personal history of nicotine dependence; Z85.828 Personal history of other malignant neoplasm of skin; Z86.73 Personal history of transient ischemic attack (TIA), and cerebral infarction without residual deficits; Z87.39 Personal history of other diseases of the musculoskeletal system and connective tissue; Z97.3 Presence of spectacles and contact lenses; Z98.890 Other specified postprocedural states; Z83.3 Family history of diabetes mellitus
CPT/HCPCS: 64448; 76942; 85025; 88300

== ENCOUNTER 2021-06-19 11:58 | Emergency (ER) | payer MEDICARE ==
[2021-06-19 12:31] VITALS: RESP 18; TEMP 98
[2021-06-19] MEDS ORDERED: DIPH,PERTUS(ACELL)TETVAC-LF 0.5 ML VIAL IM ONE (14:00)
[2021-06-19] MEDS ORDERED: LIDOCAINE 1% INJ 10MG/ML (20 ML MDV) SQ ONE (14:00)
[2021-06-19] MEDS ORDERED: BACITRACIN OINT 1 EACH PACKET TOPICAL ONE (14:01)
[2021-06-19] MEDS ORDERED: TOPICAL SKIN ADHESIVE 1 EACH AMP TOPICAL ONE (14:01)
[2021-06-19] MEDS ORDERED: HYDROcodone/APAP 5-325MG 1 EACH TAB PO STA (14:42)
--- NOTE | 2021-06-19 16:11 | ED ---
Wound/Laceration HPI - General Chief Complaint: Wound/Laceration Stated Complaint: finger lac Time Seen by Provider: 06/19/21 13:19 Source: patient Mode of arrival: ambulatory Limitations: no limitations - History of Present Illness Initial Comments: Patient is a 71-year-old male presenting to the emergency department with lacerations on his left middle and ring finger that happened just prior to arrival. Patient states he was using a retrimmer and went to cut some eitan off his mailbox when it slipped and he hit to his two left fingers. He is not on blood thinners. His tetanus vaccine is not up-to-date. Bleeding is controlled with a bandage. He has no further complaints. - Related Data Home Medications Medication Instructions Recorded Confirmed ALPRAZolam [Xanax] 0.25 mg PO BID PRN 03/25/17 09/15/20 Atorvastatin [Lipitor] 80 mg PO HS 03/25/17 09/15/20 Atenolol/Chlorthalidone 1 each PO DAILY 09/12/20 09/15/20 [Atenolol-Chlorthalidone 50-25] Citalopram Hydrobromide 40 mg PO DAILY 09/12/20 09/15/20 [Citalopram HBr] Donepezil [Aricept] 10 mg PO HS 09/12/20 09/15/20 Gabapentin [Neurontin] 800 mg PO HS 09/12/20 09/15/20 Ibuprofen [Motrin] 800 mg PO Q8H PRN 09/12/20 09/15/20 lisinopriL [Zestril] 20 mg PO DAILY 09/12/20 09/15/20 traZODone HCL 100 mg PO HS 09/12/20 09/15/20 Previous Rx's Medication Instructions Recorded Aspirin [Adult Low Dose Aspirin EC] 81 mg PO BID #60 tablet. 09/18/20 Docusate [Colace] 100 mg PO BID #60 capsule 09/18/20 HYDROcodone/APAP 10-325MG [[place] 1 tab PO Q4HR PRN #42 tab 09/18/20 10-325] oxyCODONE ER [OxyCONTIN] 10 mg PO Q12HR 5 Days #10 tab 09/18/20 Cephalexin [Keflex] 500 mg PO Q6HR 5 Days #20 cap 06/19/21 Allergies Allergy/AdvReac Type Severity Reaction Status Date / Time No Known Allergies Allergy Verified 06/19/21 12:29 Review of Systems ROS Statement: Those systems with pertinent positive or pertinent negative responses have been documented in the HPI. ROS Other: All systems not noted in ROS Statement are negative. Past Medical History Past Medical History: Cancer, Diabetes Mellitus, Hyperlipidemia, Hypertension, Memory Impairment, Osteoarthritis (OA) Additional Past Medical History / Comment(s): HX SKIN CAN ON EAR, no current meds for diabetes,. VERTIGO only when turns on right side when lying down, beginnings of Alzheimer's History of Any Multi-Drug Resistant Organisms: None Reported Past Surgical History: Hernia Repair, Orthopedic Surgery Additional Past Surgical History / Comment(s): LT KNEE SCOPE, hernia repair x3, 2 inguinal, one umbilicus, carpal tunnel & tendon repair left wrist Past Anesthesia/Blood Transfusion Reactions: Motion Sickness, Postoperative Nausea & Vomiting (PONV) Past Psychological History: Anxiety Smoking Status: Former smoker Past Alcohol Use History: Occasional Past Drug Use History: None Reported - Past Family History Mother Family Medical History: No Reported History General Exam - General Exam Comments Initial Comments: GENERAL: Patient is well-developed and well-nourished. Patient is nontoxic and in no acute distress. HEAD: Atraumatic, normocephalic. EYES: Pupils equal round and reactive to light, extraocular movements intact, sclera anicteric, conjunctiva are normal. Eyelids were unremarkable. LUNGS: Unlabored respirations. Breath sounds clear to auscultation bilaterally and equal. No wheezes rales or rhonchi. HEART: Regular rate and rhythm without murmurs, rubs or gallops. MUSCULOSKELETAL: He has full range of motion of all his left fingers, strength is normal. He is neurovascular intact. No clubbing or cyanosis. NEUROLOGICAL: Patient is alert and oriented x 3. PSYCH: Normal mood, normal affect. SKIN: Warm, Dry, normal turgor, no rashes. Patient has a 2 cm flap injury to the distal end of his left middle finger, no nail involvement. Bleeding is controlled. He also has a superficial 0.5 cm laceration to the distal and of his left ring finger, there is no active bleeding. Limitations: no limitations Course Vital Signs 06/19/21 12:29 Temperature 98 F Pulse Rate 64 Respiratory 18 Rate Blood Pressure 131/76 O2 Sat by Pulse 96 Oximetry Procedures - Laceration Laceration #1 Consent Obtained: verbal consent Indication: laceration Site: other (Left middle finger) Size (cm): 2 Description: flap Depth: simple, single layer Anesthetic Used: lidocaine 1% Anesthesia Technique: nerve block Amount (mls): 4 Pre-repair: irrigated extensively Type of Sutures: nylon Size of Sutures: 5-0 Number of Sutures: 7 Technique: simple, interrupted Patient Tolerated Procedure: well Laceration #2 Consent Obtained: verbal consent Indication: laceration Site: other (Ring finger) Size (cm): 0 (0.5cm) Description: linear Depth: simple, single layer Patient Tolerated Procedure: well Additional Comments: We used topical exofin to close this wound, he tolerated the procedure well. Topical Steri-Strips and a bandage was applied. Medical Decision Making - Medical Decision Making Patient is a 71-year-old male here with a 2 cm flap, partial avulsion injury to the distal end of his left middle finger and a superficial 0.5 cm laceration to the distal end of his left ring finger. We did update his tetanus vaccine today. Bleeding was controlled, is not on blood thinners. She was given a pain medication. I did perform a digital block of the left middle finger, patient's wound was cleaned and closed with 7, 5-0 sutures. He tolerated procedure well. I used topical skin adhesive for the superficial lac on his left ring finger. He is stable for discharge. I will give him a few days of antibiotic and he will take Tylenol or Motrin for discomfort. He will have sutures removed in approximately 10 days. He is agreeable as planned care and is stable for discharge. Disposition Clinical Impression: Laceration of left middle finger, Laceration of left ring finger Disposition: HOME SELF-CARE Condition: Stable Instructions (If sedation given, give patient instructions): Care For Your Stitches (ED) Additional Instructions: Please return to the Emergency Department if symptoms worsen or any other concerns. Take antibiotics as prescribed. Alternate between Tylenol and Motrin for discomfort. Change bandage tomorrow. Stitches need to be removed in 7-10 days as discussed. Prescriptions: Cephalexin [Keflex] 500 mg PO Q6HR 5 Days #20 cap Is patient prescribed a controlled substance at d/c from ED?: No Referrals: Vito Ruiz MD [Primary Care Provider] - 1-2 days Time of Disposition: 16:11
[2021-06-19 16:33] VITALS: BP 141/74; PULSE 50
== END 2021-06-19 16:33 | disposition home or self-care (01) ==
LOC: EC 11:58
DX: S61.213A Laceration without foreign body of left middle finger without damage to nail, initial encounter (principal); S61.215A Laceration without foreign body of left ring finger without damage to nail, initial encounter; E11.9 Type 2 diabetes mellitus without complications; I10 Essential (primary) hypertension; E78.5 Hyperlipidemia, unspecified; G30.9 Alzheimer's disease, unspecified; F02.80 Dementia in other diseases classified elsewhere, unspecified severity, without behavioral disturbance, psychotic disturbance, mood disturbance, and anxiety; F41.9 Anxiety disorder, unspecified; M19.90 Unspecified osteoarthritis, unspecified site; Z79.1 Long term (current) use of non-steroidal anti-inflammatories (NSAID); Z79.82 Long term (current) use of aspirin; Z79.891 Long term (current) use of opiate analgesic; Z79.899 Other long term (current) drug therapy; Z87.891 Personal history of nicotine dependence; Z23 Encounter for immunization; W26.8XXA Contact with other sharp object(s), not elsewhere classified, initial encounter
CPT/HCPCS: 90715; 12001; 90471; 99282; J2001

== ENCOUNTER → 2021-07-26 | Outpatient (CLI) | payer MEDICARE ==
[2021-07-26 13:19] LABS: ALT 39 U/L (4-49); AST 36 U/L (17-59); African American GFR (CKD) >90 (>60 ml/min/1.73 sqM); Albumin 4.1 g/dL (3.5-5.0); Alkaline Phosphatase 68 U/L (38-126); Anion Gap 7 mmol/L; Blood Urea Nitrogen 15 mg/dL (9-20); Calcium 9.4 mg/dL (8.4-10.2); Carbon Dioxide 27 mmol/L (22-30); Chloride 104 mmol/L (98-107); Glucose 148 mg/dL (74-99); Non-African American GFR(CKD) 86 (>60 ml/min/1.73 sqM); Potassium 4.5 mmol/L (3.5-5.1); Sodium 138 mmol/L (137-145); Total Bilirubin 0.8 mg/dL (0.2-1.3); Total Protein 6.8 g/dL (6.3-8.2)
[2021-07-26 13:20] LABS: Appearance,Urine Clear (Clear); Bilirubin,Urine Negative (Negative); Blood,Urine Negative (Negative); Color,Urine Yellow; Glucose,Urine (UA) Negative (Negative); Ketones,Urine Negative (Negative); Leukocyte Esterase,Urine Negative (Negative); Nitrite,Urine Negative (Negative); Protein,Urine Negative (Negative); Specific Gravity,Urine 1.025 (1.001-1.035); Urobilinogen,Urine <2.0 mg/dL (<2.0)
[2021-07-26 13:29] LABS: Partial Thromboplastin Time 22.1 sec (22.0-30.0); Prothrombin Time 11.1 sec (9.0-12.0)
[2021-07-26 13:38] LABS: HGB 13.6 gm/dL (13.0-17.5); MCH 33.3 pg (25.0-35.0); MCHC 34.9 g/dL (31.0-37.0); MCV 95.2 fL (80.0-100.0); Mean Platelet Volume 7.5; Platelet Count 233 k/uL (150-450); WBC 5.1 k/uL (3.8-10.6)
== END | disposition home or self-care (01) ==
LOC: LABPAT 11:39
PROVIDERS: ATTEND Orthopaedic Surgery Sports Medicine
DX: Z01.812 Encounter for preprocedural laboratory examination (principal); M17.11 Unilateral primary osteoarthritis, right knee
CPT/HCPCS: 36415; 80053; 81003; 85027; 85610; 85730; 87070

== ENCOUNTER 2021-08-17 05:39 | Day surgery (SDC) | payer MEDICARE ==
[~2021-08-17 05:39] MED LIST changes: -ACETAMINOPHEN TAB 500 MG TAB PO ONE; +ACETAMINOPHEN TAB 500 MG TAB PO PRN; -DEXAMETHASONE SOD PHOSPHATE 10 MG/ML 1 ML VIAL IV ONE; +DEXAMETHASONE SOD PHOSPHATE 4 MG/ML 1 ML VIAL IV ONE; -GABAPENTIN 300 MG CAP PO ONE; +GABAPENTIN 300 MG CAP PO PRN; -HYDROmorphone 0.5 MG/0.5 ML SYRINGE IVP PRN; +LIDOCAINE 1% (10MG/ML) FOR IV START INTRADERMA PRN; -MELOXICAM 7.5 MG TAB PO ONE; +MELOXICAM 7.5 MG TAB PO PRN; +ONDANSETRON 4 MG/2 ML VIAL IVP PRN; -ROPIVACAINE 246.25 MG, EPINEPHrine 0.5 MG, KETOROLAC 30 MG, cloNIDine HCL/PF 80 MCG, WA... MISCELLANE ONE; +ROPIVACAINE/EPI/CLONIDINE/KET 50 ML SYRINGE MISCELLANE PRN; -TRANEXAMIC ACID 1,000 MG in SODIUM CHLORIDE 0.9% 100 ML IVPB ONE; +TRANEXAMIC ACID 1,000 MG in SODIUM CHLORIDE 0.9% 100 ML IVPB PRN
[2021-08-17 06:23] LABS: Glucose,Whole Blood 134 mg/dL (75-99)
[2021-08-17] MEDS ORDERED: HYDROmorphone 0.5 MG/0.5 ML SYRINGE IVP PRN ×2 (07:00→10:10)
[2021-08-17] MEDS ORDERED: ePHEDrine SULFATE/0.9% NACL/PF 50 MG/5 ML SYRINGE IV ONE (07:43)
[2021-08-17] MEDS ORDERED: TRANEXAMIC ACID 1,000 MG/10 ML VIAL ONE (07:43)
[2021-08-17] MEDS ORDERED: PROPOFOL 10 MG/ML 20 ML VIAL IV ONE (07:43)
[2021-08-17] MEDS ORDERED: SODIUM CHLORIDE 0.9% 100 ML BAG ONE (07:43)
[2021-08-17] MEDS ORDERED: SODIUM CHLORIDE 0.9% (PF) 10 ML VIAL ONE (07:43)
[2021-08-17] MEDS ORDERED: MIDAZOLAM 2 MG/2 ML VIAL ONE (07:43)
[2021-08-17] MEDS ORDERED: ROPIVACAINE 5 MG/ML 30 ML VIAL ONE (07:43)
[2021-08-17] MEDS ORDERED: ceFAZolin 3,000 MG in SODIUM CHLORIDE 0.9% IRRIGATIO 3,000 ML IRRIGATION ONE (08:24)
[2021-08-17] MEDS ORDERED: LACTATED RINGERS 1,000 ML IV ONE (08:48)
[2021-08-17] MEDS ORDERED: ACETAMINOPHEN TAB 325 MG TAB PO PRN (10:10)
[2021-08-17] MEDS ORDERED: HYDROmorphone 0.2 MG/1 ML SYRINGE IVP PRN (10:10)
[2021-08-17] MEDS ORDERED: ONDANSETRON 4 MG/2 ML VIAL IVP PRN (10:10)
[2021-08-17] MEDS ORDERED: MAGNESIUM HYDROXIDE 2,400 MG/10 ML CUP PO PRN (10:10)
[2021-08-17] MEDS ORDERED: traMADol 50 MG TAB PO PRN (10:10)
[2021-08-17] MEDS ORDERED: NA PHOS,M-B/NA PHOS,DI-BA 133 ML ENEMA RECTAL PRN (10:10)
[2021-08-17] MEDS ORDERED: NALOXONE 0.4 MG/ML 1 ML VIAL IV PRN (10:10)
[2021-08-17] MEDS ORDERED: bisacodyL 10 MG SUPP RECTAL PRN (10:10)
[2021-08-17] MEDS ORDERED: HYDROcodone/APAP 7.5-325MG 1 EACH TAB PO PRN (10:20)
[2021-08-17] MEDS ORDERED: ROPIVACAINE 0.2%-NS ON-Q PUMP 2 MG/ML EACH MISCELLANE ONE (10:22)
--- NOTE | 2021-08-17 10:34 | OP ---
OPERATIVE REPORT DATE OF PROCEDURE: 08/17/2021 SURGEON: Henri An MD. EARLY INTERVENTION SPECIALIST: Wesley MCKEON. PREOP DIAGNOSIS: Right knee osteoarthrosis. POSTOPERATIVE DIAGNOSIS: Right knee osteoarthrosis. OPERATION: Right total knee arthroplasty. ANESTHESIA: Spinal with sedation. ESTIMATED BLOOD LOSS: 100 mL. TOURNIQUET: Tourniquet time was 61 minutes at 250 mmHg. COMPLICATIONS: None apparent. DRAINS: None. DISPOSITION: Postanesthesia care unit. INDICATIONS: Isidro is a very pleasant 71-year-old male with longstanding history of right knee pain. History and physical examination are consist with advanced right knee osteoarthrosis. He has been through significant nonoperative management up to this point. Further treatment options were discussed and he has decided to go forward with the right total knee arthroplasty. Risks of procedure were discussed with him in detail. These risks include, but are not limited to risk of infection, nerve damage, bleeding, pain, and a small risk of deep vein thrombosis which could lead to fatal pulmonary embolism. There is also risk of loosening of the implant which could require revision operation. The patient understands these risks. All of his questions were answered to his satisfaction. Appropriate informed consent was obtained. DESCRIPTION OF THE PROCEDURE: The patient was identified in the preoperative holding area. Surgical site was marked by both the patient and myself. Given 2 grams of Ancef IV for prophylactic purposes. He was then transferred to the operative suite. He was placed supine on the operative table. Spinal anesthetic was then administered and dosed per the anesthesia without apparent complication. Examination under anesthesia was performed. The patient was 5-7 degrees shy of full extension. He had 95 degrees of flexion. The medial collateral ligament, lateral collateral ligament posterior cruciate ligaments were stable. Tourniquet was then placed high on the right upper thigh well-padded in preparation for surgery. The patient's right lower extremity was then prepped and draped in usual sterile fashion. Standard surgical pause undertaken to ensure that we were operating on the correct site and that appropriate preoperative antibiotics were given. All staff in the room were in agreement. We proceeded. The outlines of the patella were marked with a surgical pen. A planned 12 cm vertical incision centered over the patella was marked with a surgical pen. Leg was then exsanguinated with an Esmarch dressing. The knee was then flexed and tourniquet inflated to 250 mmHg. The total tourniquet time for the procedure was 61 minutes. Incision was then made with a 10 blade scalpel. Dissection was carried down sharply overlying fascia. Great care was taken to minimize the skin flaps. The knee was then exposed using a standard medial parapatellar approach. A small cuff of quadriceps tendon was then left for suturing. He was in quite a bit of varus preoperatively. A standard medial release was then made. Superficial medial collateral ligament dissected off the bone around the posterior aspect of the proximal tibia. The medial meniscus was then excised as well. The lateral meniscus was also released anteriorly. The leg was then externally rotated. The patella was everted. The knee was flexed. The retractors then placed to protect the collateral ligaments. I then proceeded to remove the infrapatellar fat pad. This was excised sharply tangentially with fibers of the patellar tendon. I then proceeded to remove the peripheral osteophytes. This was done with a rongeur. I then proceeded with the distal resection. He did have a small flexion contracture. A planned 11 mm resection was then done. Femoral canal was then entered in the midline of the femur approximately 10 mm anterior to the origin of the posterior cruciate ligament. The maria was then advanced down the center of the femur and placed intramedullary. Based on the preoperative radiographs, the angle between the anatomic and mechanical axis of the femur was approximately 4-5 degrees. The valgus angle of the distal femoral cutting guide was then set at 4 degrees for the right knee. The distal femoral cutting guide was then advanced over the intramedullary maria. This was seated firmly against the femur. Then as mentioned I planned to take 11 mm off the distal femur. The cutting block was then secured onto the femur with pins. The jig was then removed. Distal cut was made through the slot of the block. The pins then removed. The distal femoral cutting block was removed. The accuracy of the distal femoral cuts was checked with 2 flat bars. I then proceeded with femoral sizing. The posterior referencing sizing guide was held firmly against the resected distal surface of the femur. The posterior condyles were resting on the posterior plane of the guide. The sizing stylus was then placed on the anterior femur. The size was measured with a size 9. I then assessed for femoral rotation. Plan was for 3 degrees external rotation. Three degrees external rotation was placed onto the jig. These holes were then marked. I then confirmed the rotation by 3 separate methods. This was done using the epicondylar axis as well as Whitesides line and posterior referencing. It was deemed that the external rotation was proper. I then went forward and placed the femoral cutting block. This was placed over the previously placed pin holes. The Efra wing was then placed on the anterior slots to ensure that we would not notch the anterior femur with the anterior femoral cut. I then proceeded with the anterior femoral cut. This was flush with the anterior cortex of the femur. The posterior cuts were made followed by the anterior chamfer cut, and the posterior chamfer cut. The cutting block was then removed. Throughout the resection, the collateral ligaments were protected with retractors. I then placed a trial size 9 femur. Slightly wide with a narrow fit very nicely and it fit flush with the distal end of the femur. The drill holes were then made. I then proceeded with the tibial cut. I planned for cruciate retaining knee. The guide was placed and set for varus valgus and for slope. The height was set for approximate 2 mm resection from the medial tibial plateau which was the lower side having the alignment and the amount of resection. The cutting block was then pinned to the proximal tibia. The alignment maria was removed and the proximal tibia was resected with a reciprocating saw. Again, this was done with retractors protecting the collateral ligaments as well as the posterior cruciate ligament. I then proceeded to evaluate the flexion extension gaps. A 10 mm block was then placed. The flexion and extension gaps were equal. I then proceeded with resection of posterior osteophytes. Very minimal posterior osteophytes. This was done using a curved osteotome. This resected the posterior osteophytes. Posterior capsule stripping was done off the posterior aspect of the femur at this time. The osteophytes were then removed. I then proceeded with resection of the patella. The thickness of patella was measured using the caliper. The thickness was 26 mm. The thickness of the anticipated patellar dome was taken into account. Resection was then performed and confirmed to be equal in 4 quadrants using a caliper. Approximately 14 mm of bone remained after resection. A 32 x 8.5 mm standard patellar trial was then placed. The holes drilled. The trial was then placed. I then proceeded with sizing tibial plate, a size E tibial plate fit very nicely. I then placed the trial femur in the tibial tray and patellar button. A 10 mm trial tibial insert was also placed. The components fit very nicely. He had full extension and flexion. The extension flexion gaps were equal and stable to varus and valgus stress. The patella tracked appropriately. The tibial tray rotation was then marked with a Bovie. This was externally rotated properly. I then proceed with tibial preparation. I first drilled the femoral holes, removed femoral component. The tibial tray was then set for proper external rotation as well as mediolateral placement onto the tibia. It was then pinned into place. I then proceeded punching the keel. I then decided to proceed with cementing of all components. The knee was thoroughly irrigated with sterile saline solution via pulse lavage. The lateral geniculate artery was identified and cauterized. All blood was removed from the bone of the tibia femur and patella with pulse lavage. I then proceeded with cementing. Two packs of antibiotic bone cement were prepared on the back table by the rn medical surgical. I then proceed with cementing the tibia first. The cement was impacted in the keel as well as deeply seated the bone. A second coat of cement was then placed. The tibia was then impacted into place. Excess cement was removed with Shannon's and jokers. I then proceeded with cementing the femoral component. The femoral component was also cemented using standard technique. Excess cement was removed. A 10 mm trial insert was then placed. We then placed in the knee. It was brought into full extension with a constant axial load placed until the cement had hardened. The patellar component was then cemented. This was held firmly with a compressive device until the cement had dried. When the cement had dried, the knee was taken out of extension. All excess cement was removed from around the prosthesis. I then trialed with the 10 mm insert. Flexion and extension gaps were appropriate. The knee was stable. It came into full extension. I decided to go forward with the 10 mm medial congruent cross-linked cruciate-retaining tibial insert. Polyethylene was then placed on the tibial tray and locked into place. The knee was then reduced. The knee was again further irrigated with sterile saline solution with antibiotic added. The tourniquet was then deflated. The total tourniquet time for the procedure was 61 minutes at 250 mmHg. Final components were Tomas Persona size 9 narrow cruciate-retaining femoral component, a size E tibial tray, a 10 mm medial congruent cruciate-retaining polyethylene insert and a 32 x 8.5 mm patella. I then proceeded with closure. Again, the knee was thoroughly irrigated. The quadriceps tendon and the medial retinaculum were reapproximated with #2 Ethibond suture. The extensor mechanism was then closed with a running #2 Quill suture. Subcutaneous tissues were closed with 2-0 Vicryl interrupted suture. The skin was closed with a running 3-0 Quill suture. Dermabond was applied to the incision. Sterile compressive dressing was then applied. All sponge and needle counts were deemed correct prior to closure. The patient tolerated the procedure without apparent complication. He was transferred to recovery room in stable condition. MMODL / IJN: [id number] /
--- NOTE | 2021-08-17 10:58 | XR ---
Right knee limited HISTORY: Status post right knee arthroplasty 2 views of the right knee Patient is status post right knee arthroplasty. There is anatomic alignment. Lucencies present in the soft tissues consistent with postop state. IMPRESSION: Orthopedic follow-up.
[2021-08-17] MEDS: LACTATED RINGERS 1,000 ML IV SCH ×2 (11:12→20:41)
--- NOTE | 2021-08-17 12:34 | P.ANPRN ---
Procedure Note - Anesthesia - Nerve Block Performed Right Adductor Canal Infusion Date of Procedure: 08/17/21 Procedure Start Time: : Procedure Stop Time: 06:55 Location of Patient: PreOp Indication: Acute Post-Operative Pain, Analgesia, Dx/Pain Location, Requested by Surgeon Specifically requested for management of pain by Dr.: Henri An Sedation Type: Sedate with meaningful contact maintained Preparation: Sterile Prep, Sterile Dressing Position: Supine Catheter Depth at Skin (cm): 8 Catheter: Indwelling Needle Types: Pajunk Needle Gauge: 18 Ultrasound used to visualize needle placement: Yes Ultrasound used to observe medication spread: Yes Injectate: Other (see comment) (20 ml Plus dexamethasone 4 mg) Pain Paresthesia on Injection Noted: No Resistance on Injection: Normal Image Stored and Saved: Yes Events: Uneventful and Well Tolerated Right iPack Single Date of Procedure: 08/17/21 Procedure Start Time: : Procedure Stop Time: :55 Location of Patient: PreOp Indication: Acute Post-Operative Pain, Analgesia, Dx/Pain Location, Requested by Surgeon Specifically requested for management of pain by DrWinnie: Henri An Sedation Type: Sedate with meaningful contact maintained Preparation: Sterile Prep Position: Supine Catheter: None Needle Types: Pajunk Needle Gauge: 20 Ultrasound used to visualize needle placement: Yes Ultrasound used to observe medication spread: Yes Injectate: 0.5% Ropivacaine (see comment for volume) (10 ml plus 10 ml of 0.9% NaCl PF) Blood Aspirated: No Pain Paresthesia on Injection Noted: No Resistance on Injection: Normal Image Stored and Saved: Yes Events: Uneventful and Well Tolerated
[2021-08-17] MEDS: HYDROcodone/APAP 7.5-325MG 1 EACH TAB PO PRN ×2 (12:56→19:15)
[2021-08-17] MEDS: HYDROmorphone 0.5 MG/0.5 ML SYRINGE IVP PRN ×2 (14:58→18:01)
[2021-08-17] MEDS ORDERED: IBUPROFEN 800 MG TAB PO PRN (17:55)
[2021-08-17] MEDS: traZODone HCL 100 MG TAB PO SCH ×2 (20:41→20:42)
[2021-08-17] MEDS: ASPIRIN 81 MG PO SCH ×2 (20:41→22:14)
[2021-08-17] MEDS ORDERED: DONEPEZIL 10 MG TAB PO SCH (21:00)
[2021-08-17] MEDS ORDERED: SENNOSIDES-DOCUSATE SODIUM 1 EACH TAB PO SCH (21:00)
[2021-08-17] MEDS ORDERED: GABAPENTIN 400 MG CAP PO SCH (21:00)
[2021-08-17 21:10] LABS: Glucose,Whole Blood 192 mg/dL (75-99)
[2021-08-18 07:00] LABS: Glucose,Whole Blood 169 mg/dL (75-99)
[2021-08-18] MEDS: HYDROcodone/APAP 7.5-325MG 1 EACH TAB PO PRN (07:13)
[2021-08-18] MEDS: ASPIRIN 81 MG PO SCH ×2 (07:13→07:17)
[2021-08-18 07:28] VITALS: BP 118/55; PULSE 63; RESP 17; TEMP 98.2
[2021-08-18] MEDS ORDERED: atenoloL 50 MG TAB PO SCH (09:00)
[2021-08-18] MEDS ORDERED: CHLORTHALIDONE 25 MG TAB PO SCH (09:00)
[2021-08-18] MEDS ORDERED: lisinopriL 20 MG TAB PO SCH (09:00)
[2021-08-18] MEDS ORDERED: CITALOPRAM HYDROBROMIDE 20 MG TAB PO SCH (09:00)
[2021-08-18 09:40] LABS: Basophils # (A) 0.01 X 10*3/uL (0.00-0.10); Basophils % (A) 0.1 %; Eosinophils # (A) 0 X 10*3/uL (0.04-0.35); Eosinophils % (A) 0 %; HCT 32.9 % (39.6-50.0); HGB 10.8 g/dL (13.0-17.0); Lymphocytes # (A) 0.82 X 10*3/uL (0.90-5.00); Lymphocytes % (A) 8.5 %; MCH 30.9 pg (27.0-32.0); MCHC 32.8 g/dL (32.0-37.0); MCV 94.3 fL (80.0-97.0); Mean Platelet Volume 10.5 fL (9.5-12.2); Monocytes # (A) 0.54 X 10*3/uL (0.20-1.00); Monocytes % (A) 5.6 %; Neutrophils # (A) 8.22 X 10*3/uL (1.80-7.70); Neutrophils % (A) 85.5 %; Platelet Count 178 X 10*3/uL (140-440); RBC 3.49 X 10*6/uL (4.40-5.60); RDW 13.3 % (11.5-14.5); WBC 9.62 X 10*3/uL (4.50-10.00)
--- NOTE | 2021-08-18 10:09 | P.PN ---
Progress Note - Text Progress Note Date: 08/18/21 patient was seen and evaluated at bedside. Patient was sitting comfortably in chair. Status post postoperative day 1 for right total knee arthroplasty patient had adductor canal catheter for postop pain control. Patient rated her pain at rest 6 out of 10 in severity. She describes her pain is aching, throbbing type on the sides of his knee and back of his knee. She started walking with support. Her pain is 8 out of 10 in severity. With the help of oral pain medications her pain levels are tolerable. Patient denied any weakness/ numbness in his lower extremities. patient denied any fever, pain over the catheter site. Physical exam: Patient vital signs stable Patient is alert awake oriented 3 responding to all questions appropriately Examination of the catheter site showed dressing intact, no fluid leaking around the catheter, no redness, no tenderness over the catheter insertion area. plan: Status post postoperative day 1 for right total knee arthroplasty with adductor canal catheter for pain control. Patient was discussed to continue the medication at the rate of 8 mL per hour until the pump is completely empty ,and instructed the patient how to discontinue the catheter.
--- NOTE | 2021-08-18 10:50 | P.DS ---
Providers Expected date of discharge: 08/18/21 Attending physician: Henri An Consults: 08/17/21 10:14 Consult Physician Routine Consulting Provider: Vito Ruiz Consult Reason/Comments: post op medical management Do you want consulting provider notified?: Yes Primary care physician: Vito Ruiz - Discharge Diagnosis(es) (1) Status post total right knee replacement Patient was admitted to the OR on 08/17/21 to undergo a right total knee arthroplasty. He had failed conservative measures as an outpatient and desired to proceed with elective surgery after given informed consent. He underwent the above procedure which he tolerated well without complication. Postoperative hospital course has remained without complication. On day of discharge he is afebrile, vital signs stable, labs within acceptable ranges, tolerating by mouth meds and diet, voiding without difficulty, positive flatus, denies abdominal pain or calf pain, pain is controlled on oral pain medication and has no new complaints. Wound is benign, neurovascular status is intact, calf is soft and nontender, abdomen soft and nontender. Review of systems is negative for numbness, tingling, fever, chills, chest pain, shortness of breath, nausea, vomiting, dizziness, headaches, slurred speech or other. Current Visit: Yes Status: Acute Priority: Medium Procedures: Right TKA Patient Condition at Discharge: Good Plan - Discharge Summary Discharge Rx Participant: No New Discharge Prescriptions: New Aspirin [Adult Low Dose Aspirin EC] 81 mg PO BID #60 tab Docusate [Colace] 100 mg PO BID #60 cap HYDROcodone/APAP 7.5-325MG [[place] 7.5-325] 1 - 2 each PO Q6HR PRN #42 tab PRN Reason: Pain No Action ALPRAZolam [Xanax] 0.5 mg PO BID PRN PRN Reason: Anxiety Atorvastatin [Lipitor] 80 mg PO HS Donepezil [Aricept] 10 mg PO HS lisinopriL [Zestril] 20 mg PO QAM Gabapentin [Neurontin] 800 mg PO HS traZODone HCL 100 mg PO HS Citalopram Hydrobromide [Citalopram HBr] 40 mg PO QAM Atenolol/Chlorthalidone [Atenolol-Chlorthalidone 50-25] 1 each PO QAM Ibuprofen [Motrin] 800 mg PO Q8H PRN PRN Reason: Pain Aspirin [Adult Low Dose Aspirin EC] 81 mg PO BID #60 tablet. Discharge Medication List ALPRAZolam [Xanax] 0.5 mg PO BID PRN 03/25/17 [History] Atorvastatin [Lipitor] 80 mg PO HS 03/25/17 [History] Atenolol/Chlorthalidone [Atenolol-Chlorthalidone 50-25] 1 each PO QAM 09/12/20 [History] Citalopram Hydrobromide [Citalopram HBr] 40 mg PO QAM 09/12/20 [History] Donepezil [Aricept] 10 mg PO HS 09/12/20 [History] Gabapentin [Neurontin] 800 mg PO HS 09/12/20 [History] Ibuprofen [Motrin] 800 mg PO Q8H PRN 09/12/20 [History] lisinopriL [Zestril] 20 mg PO QAM 09/12/20 [History] traZODone HCL 100 mg PO HS 09/12/20 [History] Aspirin [Adult Low Dose Aspirin EC] 81 mg PO BID #60 tablet. 09/18/20 [Rx] Aspirin [Adult Low Dose Aspirin EC] 81 mg PO BID #60 tab 08/18/21 [Rx] Docusate [Colace] 100 mg PO BID #60 cap 08/18/21 [Rx] HYDROcodone/APAP 7.5-325MG [[place] 7.5-325] 1 - 2 each PO Q6HR PRN #42 tab 08/18/21 [Rx] Follow up Appointment(s)/Referral(s): [facility] [NON-STAFF] - As Needed (Supplier of walker) [facility], [NON-STAFF] - Henri An MD [STAFF PHYSICIAN] - 10 Days Activity/Diet/Wound Care/Special Instructions: Keep wound clean and dry Take meds as directed Follow-up with Dr. An in office Weight bear as tolerated May shower in 3 days if no bleeding Discharge Disposition: HOME WITH HOME HEALTH SERVICES
[2021-08-18 11:49] LABS: Glucose,Whole Blood 221 mg/dL (75-99)
[2021-08-18] MEDS ORDERED: MULTIVITAMINS, THERA 1 EACH TAB PO SCH (12:00)
--- NOTE | 2021-08-19 16:24 | PN ---
PROGRESS NOTE DATE OF SERVICE: 08/18/2021 CHIEF COMPLAINT: Status post right TKA. HISTORY OF PRESENT ILLNESS: This gentleman is doing well. He has had no chills, fever, shortness of breath, chest pain, nausea, confusion, etc. PHYSICAL EXAMINATION: Vital signs are normal. He is afebrile. Head, ears, eyes, nose, mouth and throat are normal. The chest is clear. Cardiac exam is normal. The abdomen is soft, nontender. Extremities are normal except for the dressing on the right knee. Neurologically he is intact. Pulse is good. IMPRESSION: Status post right total knee arthroplasty. PLAN: Probably home today. MMODL / IJN: [id number] /
--- NOTE | 2021-08-19 18:45 | CONS ---
CONSULTATION CHIEF COMPLAINT: Arthritis right knee. HISTORY OF PRESENT ILLNESS: This gentleman is coming in for an elective right TKA. He has had some minor health problems in the past including type 2 diabetes, hypertension, and mild dementia. Other than that, he is doing very well and he is an excellent candidate for proposed surgery. REVIEW OF SYSTEMS: He has had no headaches, neurologic deficits, change in vision or hearing, chest pain, shortness of breath, cough, hemoptysis, heart disease, angina, infarctions, orthopnea, PND, murmurs, rheumatic fever, abdominal pain, nausea, vomiting, hematemesis, melena, hematochezia, diverticulosis, diverticulitis, jaundice, hepatitis, renal failure, frequency, urgency, dysuria, incontinence, etc. He does have mild type 2 diabetes. Past medical history, family history, personal and social histories otherwise found in his admitting workup. He is not allergic to any medication. He takes aspirin 81 mg a day, Motrin 800 mg q.i.d. p.r.n., levothyroxine 0.025 once a day, donepezil 10 mg q.h.s., Namenda 10 mg twice a day, Remeron 15 mg once a day, Xanax 0.5 t.i.d. p.r.n., trazodone 100 mg q.h.s. p.r.n., gabapentin 800 mg at night, atorvastatin 80 mg once a day, and atenolol 50 mg once a day. The remainder of his history is unremarkable. He used to smoke. He drinks alcohol only occasionally. PHYSICAL EXAMINATION: Blood pressure 131/81 with a pulse of 50, respirations of 20. He is afebrile. In GENERAL, he appeared to be well developed, well nourished, in no acute distress. SKIN color is normal. Skin is warm, dry. LYMPH nodes are not enlarged. HEENT: Head, ears, eyes, nose, mouth and throat were normal. NECK veins not distended. Thyroid not enlarged. CHEST is clear. CARDIAC exam is normal sinus rhythm and no murmurs. ABDOMEN is soft and slightly protuberant. There are no masses or visceromegaly. Bowel sounds are present. EXTREMITIES: Normal. NEUROLOGICALLY: He was intact. IMPRESSION: 1. Osteoarthritis of the right knee. 2. Mild essential hypertension. 3. Diet-controlled type 2 diabetes mellitus. 4. Hypothyroidism. 5. Dementia. RECOMMENDATIONS: None. MMODL / IJN: [id number] /
== END 2021-08-18 12:32 | disposition home health service (06) ==
LOC: OR 05:39 → 4SSUR 11:00 → OR 08-18 12:32
PROVIDERS: ATTEND Orthopaedic Surgery Sports Medicine
DX: M17.11 Unilateral primary osteoarthritis, right knee (principal); M25.761 Osteophyte, right knee; M21.161 Varus deformity, not elsewhere classified, right knee; I10 Essential (primary) hypertension; E78.5 Hyperlipidemia, unspecified; E11.9 Type 2 diabetes mellitus without complications; E03.9 Hypothyroidism, unspecified; H91.90 Unspecified hearing loss, unspecified ear; Z20.822 Contact with and (suspected) exposure to COVID-19; F41.9 Anxiety disorder, unspecified; F03.90 Unspecified dementia, unspecified severity, without behavioral disturbance, psychotic disturbance, mood disturbance, and anxiety; F43.10 Post-traumatic stress disorder, unspecified; Z97.3 Presence of spectacles and contact lenses; Z86.73 Personal history of transient ischemic attack (TIA), and cerebral infarction without residual deficits; Z96.652 Presence of left artificial knee joint; Z98.890 Other specified postprocedural states; Z82.49 Family history of ischemic heart disease and other diseases of the circulatory system; Z85.828 Personal history of other malignant neoplasm of skin; Z87.891 Personal history of nicotine dependence; Z83.438 Family history of other disorder of lipoprotein metabolism and other lipidemia; Z81.8 Family history of other mental and behavioral disorders; Z82.0 Family history of epilepsy and other diseases of the nervous system; Z79.84 Long term (current) use of oral hypoglycemic drugs; Z79.82 Long term (current) use of aspirin; Z79.890 Hormone replacement therapy; Z79.899 Other long term (current) drug therapy
CPT/HCPCS: 97161; 64999; 64448; 76942; 85025; 88300; 87635; 73560; 27447; C1776; C1713; J2250; J0690 ×3; J1170; J2795

== ENCOUNTER 2022-06-19 06:56 | Day surgery (SDC) | payer MEDICARE, OTHER ==
[2022-06-15 10:43] VITALS: BMI 26.1
[~2022-06-19 06:56] MED LIST changes: -ACETAMINOPHEN TAB 500 MG TAB PO PRN; -DEXAMETHASONE SOD PHOSPHATE 4 MG/ML 1 ML VIAL IV ONE; -GABAPENTIN 300 MG CAP PO PRN; -MELOXICAM 7.5 MG TAB PO PRN; -MIDAZOLAM 2 MG/2 ML VIAL IV PRN; -ONDANSETRON 4 MG/2 ML VIAL IVP ONE; -ONDANSETRON 4 MG/2 ML VIAL IVP PRN; -ROPIVACAINE/EPI/CLONIDINE/KET 50 ML SYRINGE MISCELLANE PRN; -TRANEXAMIC ACID 1,000 MG in SODIUM CHLORIDE 0.9% 100 ML IVPB PRN
[2022-06-19 07:30] VITALS: RESP 16; TEMP 97.9
[2022-06-19 07:41] LABS: Glucose,Whole Blood 93 mg/dL (70-110)
[2022-06-19] MEDS ORDERED: PROPOFOL 10 MG/ML 20 ML VIAL IV ONE (08:00)
--- NOTE | 2022-06-19 08:31 | P.PCN ---
Date of Procedure: 06/19/22 Implants: BRIEF HISTORY: Patient is a 72-year-old pleasant white male scheduled for an elective colonoscopy as a part of Screening for colorectal neoplasia. PROCEDURE PERFORMED: Colonoscopy with biopsy. PREOPERATIVE DIAGNOSIS:screening for colon cancer. IV sedation per Anesthesia. PROCEDURE: After informed consent was obtained, the patient, was brought into the endoscopy unit. IV sedation was administered by Anesthesia under continuous monitoring. Digital rectal examination was normal. Initially the Olympus CF-160 flexible video colonoscope was then inserted in the rectum, gradually advanced into the cecum without any difficulty. Careful examination was performed as the scope was gradually being withdrawn. Ileocecal valve and the appendiceal orifice were visualized and appeared normal. Prep was excellent. Mucosa of the cecum, ascending colon, transverse colon, descending colon, appeared normal. In the sigmoid: There was a 3 mm polyp that was removed by cold biopsy. Rest of the sigmoid colon, and rectum appeared normal. Retroflexion was performed in the rectum and no lesions were seen. The patient tolerated the procedure well. IMPRESSION: 3 mm sigmoid: Polyp status post cold biopsy Rest of the colon appeared normal RECOMMENDATIONS: Findings of this examination were discussed with the patient as well as his family.he was advised to follow with the biopsy results. If the biopsy reveals adenoma he can have a repeat colonoscopy in in 5 years.
[2022-06-19 08:52] VITALS: BP 111/70; PULSE 57
== END 2022-06-19 09:15 | disposition home or self-care (01) ==
LOC: ORWHC2ENDO 06:56
PROVIDERS: ATTEND Internal Medicine Gastroenterology
DX: Z12.11 Encounter for screening for malignant neoplasm of colon (principal); K63.5 Polyp of colon; I10 Essential (primary) hypertension; E11.69 Type 2 diabetes mellitus with other specified complication; E78.5 Hyperlipidemia, unspecified; E03.9 Hypothyroidism, unspecified; F03.90 Unspecified dementia, unspecified severity, without behavioral disturbance, psychotic disturbance, mood disturbance, and anxiety; Z79.82 Long term (current) use of aspirin; Z79.899 Other long term (current) drug therapy; Z87.891 Personal history of nicotine dependence
CPT/HCPCS: 88305; 45380; J2704

== ENCOUNTER → 2022-06-26 | Outpatient (CLI) | payer OTHER ==
--- NOTE | 2022-06-26 17:36 | CA ---
Transthoracic Echo Report Name: Isidro Ward Age: 72 Gender: M : 1950 Exam Date: 06/26/2022 14:14 Exam Location: [place] [facility] Ht (in): 68 Wt (lb): 175 Ordering Physician: [facility], Clinic Attending/Referring Phys: Herve Collier PAC [employer] Betty Edmond RDCS Procedure CPT: Indications: R05.9 Cough Cardiac Hx: Technical Quality: Fair Contrast 1: Total Dose (mL): Contrast 2: Total Dose (mL): MEASUREMENTS (Male / Female) Normal Values 2D ECHO LV Diastolic Diameter PLAX 4.9 cm 4.2 - 5.9 / 3.9 - 5.3 cm LV Systolic Diameter PLAX 2.5 cm IVS Diastolic Thickness 1.0 cm 0.6 - 1.0 / 0.6 - 0.9 cm LVPW Diastolic Thickness 1.2 cm 0.6 - 1.0 / 0.6 - 0.9 cm LV Relative Wall Thickness 0.4 LA Volume 56.8 cm??? 18 - 58 / 22 - 52 cm??? M-MODE Aortic Root Diameter MM 3.2 cm LA Systolic Diameter MM 3.6 cm LA Ao Ratio MM 1.1 AV Cusp Separation MM 2.0 cm DOPPLER AV Peak Velocity 106.0 cm/s AV Peak Gradient 4.5 mmHg LVOT Peak Velocity 109.7 cm/s LVOT Peak Gradient 4.8 mmHg MV Area PHT 3.3 cm??? Mitral E Point Velocity 84.4 cm/s Mitral A Point Velocity 96.3 cm/s Mitral E to A Ratio 0.9 MV Deceleration Time 229.9 ms MV E' Velocity 12.9 cm/s Mitral E to MV E' Ratio 6.5 TR Peak Velocity 253.4 cm/s TR Peak Gradient 25.7 mmHg Right Ventricular Systolic Press 30.7 mmHg FINDINGS Left Ventricle Normal Left ventricular size, wall thickness, systolic function with no obvious regional wall motion abnormalities. Normal Left ventricular diastolic filling pattern. Left ventricular ejection fraction is estimated at 55-60 %. Right Ventricle Normal right ventricular size. Right ventricular systolic pressure within normal limits. Right Atrium Normal right atrial size. Left Atrium Mildly increased left atrial area. No evidence for an atrial septal defect. Mitral Valve Structurally normal mitral valve. Mild mitral regurgitation. Aortic Valve Trileaflet aortic valve. No aortic valve stenosis or regurgitation. Tricuspid Valve Structurally normal tricuspid valve. Mild tricuspid regurgitation. Pulmonic Valve Trace pulmonic regurgitation. Pericardium No pericardial effusion. Aorta Normal size aortic root and proximal ascending aorta. CONCLUSIONS Normal LV systolic function Mild mitral regurgitation Previewed by: Dr. Robert Worthy MD (Electronically Signed) Final Date: 26 June 2022 17:35
== END | disposition home or self-care (01) ==
LOC: RADECHMAIN 14:10
DX: I08.1 Rheumatic disorders of both mitral and tricuspid valves (principal)
CPT/HCPCS: 93306

== ENCOUNTER → 2022-08-21 | Outpatient (CLI) | payer OTHER ==
--- NOTE | 2022-08-21 10:41 | CT ---
EXAMINATION TYPE: CT chest abdomen wo con CT DLP: 867 mGycm, Automated exposure control for dose reduction was used. DATE OF EXAM: 08/21/2022 10:16 AM COMPARISON: MRI lumbar spine 12/19/2016. CLINICAL INDICATION:Male, 72 years old with history of R10.84; PHH, RUQ pain, wt loss Technique: Multiple axial images of the chest and abdomen were obtained without IV contrast. This kaiser its evaluation. Two-dimensional coronal and sagittal reconstructions were obtained. Findings: CHEST: LUNGS/ PLEURA: No pneumothorax, pleural effusion, or focal consolidation. Right middle lobe periphera l 5 mm pulmonary nodule (series 4, measures 32). AIRWAY: Patent and unremarkable. HEART: Size within normal limits. No pericardial effusion. Moderate coronary arterial calcifications. MEDIASTINUM: No gross evidence of adenopathy. VASCULATURE: No aortic aneurysm. Atherosclerotic calcification of the aorta and its branches. MUSCULOSKELETAL: No acute osseous abnormalities. No aggressive osseous lesions. Multilevel degenerati ve changes of the visualized spine. SOFT TISSUES/LYMPH NODES: Unremarkable. LOWER NECK: No significant findings. ABDOMEN: ABDOMEN LIVER: A few scattered subcentimeter hypodense foci within the liver which are too small to character ize. Noncirrhotic morphology. GALLBLADDER AND BILE DUCTS: Unremarkable. PANCREAS: Unremarkable noncontrast appearance. No pancreatic ductal dilatation. SPLEEN: Unremarkable noncontrast appearance ADRENAL GLANDS: Unremarkable noncontrast appearance. KIDNEYS AND URETERS: No evidence of hydronephrosis or renal calculus. STOMACH AND BOWEL: Small hiatal hernia, duodenum is unremarkable. No focal wall thickening or surroun ding inflammatory changes. The appendix is within normal limits. No evidence of bowel obstruction. PERITONEUM: No evidence of pneumoperitoneum or free fluid. VASCULATURE: Mild atherosclerotic calcifications are present throughout the abdominal aorta and its b ranches. No abdominal aortic aneurysm. MUSCULOSKELETAL: No acute osseous abnormalities. No aggressive osseous lesions. Multilevel degenerati ve changes visualized spine. LYMPH NODES: No gross evidence for lymphadenopathy. SOFT TISSUE/ABDOMINAL WALL: Unremarkable IMPRESSION: No acute process within the chest or abdomen. Right middle lobe 5 mm pulmonary nodule. In a low-risk patient, no follow-up is recommended. In a hig h-risk patient consider optional CT chest in 12 months.
== END | disposition home or self-care (01) ==
LOC: RADCTMAIN 09:18
DX: R10.84 Generalized abdominal pain (principal); R91.1 Solitary pulmonary nodule
CPT/HCPCS: 71250; 74150

== ENCOUNTER → 2022-09-07 | Outpatient (CLI) | payer OTHER ==
--- NOTE | 2022-09-07 06:58 | MR ---
EXAMINATION TYPE: MR brain wo/w con DATE OF EXAM: 09/07/2022 COMPARISON: Prior MRI brain 2016 HISTORY: Memory loss, dementia TECHNIQUE: Multiplanar, multisequence images of the brain and brainstem is performed without and with IV contras t, utilizing 8 mL intravenous Gadavist . FINDINGS: Diffusion weighted images demonstrate no evidence of a recent infarct or other diffusion ab normality. Mild ventricular and sulcal prominence. Occasional scattered small foci of T2 hyperintensi ty seen throughout the deep and periventricular white matter bilaterally. Approximately 10-20 scatter ed small lesions are present.. Midline structures demonstrate normal morphology. The craniocervical junction appears within normal limits. Post contrast images demonstrate no abnormal enhancement. The dural venous sinuses appear pa tent. The visualized sinuses are clear and the globes are intact. IMPRESSION: Mild diffuse age-related cerebral atrophy and chronic small vessel ischemic change. No la rge infarct. No abnormal enhancement.
== END | disposition home or self-care (01) ==
LOC: RADMRIMAIN 06:00
PROVIDERS: ATTEND Physician Assistant
DX: I67.82 Cerebral ischemia (principal); G31.9 Degenerative disease of nervous system, unspecified
CPT/HCPCS: 70553; A9585

== ENCOUNTER → 2022-09-26 | Outpatient (CLI) | payer OTHER ==
[2022-09-26 23:48] LABS: HCT 41.3 % (39.6-50.0); HGB 13.8 g/dL (13.0-17.0); MCH 30.7 pg (27.0-32.0); MCHC 33.4 g/dL (32.0-37.0); MCV 91.8 fL (80.0-97.0); Mean Platelet Volume 10.2 fL (9.5-12.2); NRBC Per 100 WBC 0 /100 WBCS (0.0-0.0); Platelet Count 184 X 10*3/uL (140-440); RDW 12.7 % (11.5-14.5); WBC 4.31 X 10*3/uL (4.50-10.00)
[2022-09-27 02:10] LABS: African American GFR (CKD) 73.3 (60.0-200.0); Albumin 4.5 g/dL (3.8-4.9); Albumin/Globulin Ratio 2.24 (1.60-3.17); Anion Gap 12.2 mmol/L (10.00-18.00); BUN/Creat Ratio 12.96 Ratio (12.00-20.00); Blood Urea Nitrogen 14.9 mg/dL (9.0-27.0); Calcium 9.5 mg/dL (8.7-10.3); Carbon Dioxide 27.3 mmol/L (20.0-27.5); Non-African American GFR(CKD) 63.2 (60.0-200.0); Potassium 4.8 mmol/L (3.5-5.5); T4, Free (Free Thyroxine) 1.08 ng/dL (0.800-1.800); Total Bilirubin 0.7 mg/dL (0.30-1.20); Total Protein 6.5 g/dL (6.2-8.2)
== END | disposition home or self-care (01) ==
LOC: LABWHC1 14:04
PROVIDERS: ATTEND Psychiatry & Neurology Neurology
DX: R41.3 Other amnesia (principal)
CPT/HCPCS: 36415; 80053; 82306; 82607; 84207; 84439; 84443; 84481; 85027

== ENCOUNTER → 2023-06-14 | Outpatient (CLI) | payer OTHER ==
[~2023-06-14] MED LIST changes: +IODINE/POTASSIUM IODIDE 14 ML BOTTLE ONE; -LACTATED RINGERS 1,000 ML IV SCH; -LIDOCAINE 1% (10MG/ML) FOR IV START INTRADERMA PRN
--- NOTE | 2023-06-17 09:15 | NM ---
EXAMINATION TYPE: NM DatScan Brain SPECT DATE OF EXAM: 06/14/2023 COMPARISON: NONE HISTORY: Hearing loss TECHNIQUE: 10 drops of Lugol's solution was administered 1 hour prior to injection as a thyroid bloc deloris agent. After the administration of 4.64 mCi I-123 Ioflupane DaTscan. Images obtained 3 hours p ost injection. SPECT images of the brain were acquired with axial and coronal reconstructions. FINDINGS: The axial SPECT images demonstrate increased background activity and reduced activity withi n the bilateral striata greater on the right. IMPRESSION: Abnormal appearance highly suggestive of idiopathic Parkinson's disease or Parkinsonian s yndrome.
== END | disposition home or self-care (01) ==
LOC: RADNMMAIN 10:48
PROVIDERS: ATTEND Psychiatry & Neurology Neurology
DX: R25.1 Tremor, unspecified (principal)
CPT/HCPCS: 78803; A9584

== ENCOUNTER → 2023-10-21 | Outpatient (CLI) | payer MEDICARE ==
--- NOTE | 2023-10-21 09:37 | US ---
EXAMINATION TYPE: US liver DATE OF EXAM: 10/21/2023 COMPARISON: CT 2021 CLINICAL INDICATION: Male, 73 years old with history of R74.8 ABNORMAL LEVELS OF OTHER SERUM ENZYMES; Elevated liver enzymes TECHNIQUE: Multiple sonographic images of the right upper quadrant are obtained. FINDINGS: EXAM MEASUREMENTS: Liver Length: 11.4 cm Gallbladder Wall: 0.2 cm CBD: 0.3 cm Right Kidney: 9.1 x 4.8 x 4.8 cm Pancreas: visualized portions wnl, limited by overlying midline bowel gas Liver: course echotexture Gallbladder: wnl Evidence for sonographic An's sign: no CBD: wnl Right Kidney: wnl IMPRESSION: No evidence for acute process.
== END | disposition home or self-care (01) ==
LOC: RADUSWWP 09:01
PROVIDERS: ATTEND Family Medicine
DX: R74.8 Abnormal levels of other serum enzymes (principal)
CPT/HCPCS: 76705

== ENCOUNTER → 2023-12-09 | Outpatient (CLI) | payer MEDICARE ==
--- NOTE | 2023-12-09 08:52 | MM ---
Reason for Exam: Clinical finding. Baseline mammogram. Indicated Problems: Pain of the right side for 9 Month(s). Prior Study Comparison: Patient's first Mammogram. Tissue Density: The breast tissue is heterogeneously dense. This may lower the sensitivity of mammography. Findings: Analyzed By CAD. Asymmetric fibroglandular tissue, right greater than left. Moderate on the right side. No persisting abnormality on 3-D images, significant mass, or suspicious microcalcifications. Overall Assessment: Benign, BI-RAD 2 Management: Clinical Management of the right breast in 1 year. For the benign asymmetric gynecomastia, moderate on the right side. Correlate for potential causes. Results were given to the patient verbally at the time of exam. Electronically signed and approved by: Guzman See M.D. Radiologist
== END | disposition home or self-care (01) ==
LOC: RADMAMWWP 08:05
PROVIDERS: ATTEND Family Medicine
DX: N64.4 Mastodynia (principal); N63.10 Unspecified lump in the right breast, unspecified quadrant
CPT/HCPCS: 77066; G0279; 77062

== ENCOUNTER → 2024-04-02 | Outpatient (CLI) | payer OTHER ==
--- NOTE | 2024-04-02 11:21 | MR ---
EXAMINATION TYPE: MR cervical spine wo con DATE OF EXAM: 04/02/2024 8:12 AM COMPARISON: NONE HISTORY: Neck pain with RUE radiculopathy. Multiplanar MultiSpin echo imaging of the cervical spine was performed. Comparison: none C2-C3: No evidence for degenerative disc disease. No disc bulge/herniation or protrusion. No Canal stenosis. Foramina are patent bilaterally. C3-C4: No evidence for degenerative disc disease. No disc bulge/herniation or protrusion. No Canal stenosis. Foramina are patent bilaterally. C4-C5: Moderate disc desiccation noted. Left paracentral disc bulge with mild effacement of ventral t hecal sac. Moderate narrowing left-sided neural foramen. No central stenosis present. C5-C6: Severe disc desiccation posterior central disc bulge. Mild effacement of ventral thecal sac di stortion bilateral cervical spinal cord without cord contact. Mild bilateral neural foraminal encroac hment. C6-C7: No evidence for degenerative disc disease. No disc bulge/herniation or protrusion. No Canal stenosis. Foramina are patent bilaterally. C7-T1: No evidence for degenerative disc disease. No disc bulge/herniation or protrusion. No Canal stenosis. Foramina are patent bilaterally. Cervical segments are intact. There is normal alignment. Cervical spinal cord is of normal signal. Craniovertebral junction relationships are within normal limits. IMPRESSION: 1. Degenerative disc disease as noted. 2. Disc bulging at C4-5 and C5-6 as outlined above.
== END | disposition home or self-care (01) ==
LOC: RADMRIMAIN 07:35
PROVIDERS: ATTEND Family Medicine
DX: M50.121 Cervical disc disorder at C4-C5 level with radiculopathy (principal); M50.122 Cervical disc disorder at C5-C6 level with radiculopathy
CPT/HCPCS: 72141

== ENCOUNTER → 2024-06-04 | Outpatient (CLI) | payer MEDICARE ==
--- NOTE | 2024-06-04 09:21 | USB ---
Reason for Exam: Clinical finding. Technique: Method: Targeted. Prior Study Comparison: 12/09/2023 Bilateral MG 3D diag mammo w/cad JUNAID, PHH. Findings: The axilla of the right breast and the retroareolar of both breasts were scanned. No solid or cystic masses are identified.. There is some flamelike parenchymal tissue in the subareolar breast compatible with gynecomastia. Clinical management recommended. Overall Assessment: Benign, BI-RAD 2 Electronically signed and approved by: Gilberto Rodríguez D.O. Radiologis
== END | disposition home or self-care (01) ==
LOC: RADUSWWP 08:40
PROVIDERS: ATTEND Surgery
DX: N63.10 Unspecified lump in the right breast, unspecified quadrant (principal)

== ENCOUNTER → 2025-05-10 | Outpatient (CLI) | payer OTHER ==
[2025-05-10 13:06] VITALS: BP 109/65; PULSE 85; RESP 16; TEMP 97.2
--- NOTE | 2025-05-10 16:02 | P.PAINPG ---
PQRS Measure Charge Sheet Comment: HISTORY OF PRESENT ILLNESS: A 75 yr old male w at side as a referral from the [facility] presents today w severe and chronic neck pain > 1 yr secondary to radiculopathy, spondylosis and facet arthropathy without myelopathy for evaluation. Pt states pain level is provoked at 6 /10 in intensity, constant, localized in the cervical spine, predominantly axial, sore in character w occasional shooting pain towards the top of the shoulders. Pain is provoked by rotation. Pain is alleviated by physician guided home stretches daily since Feb 2025, medications, topical, heat, repositioning and rest . Cervical disability score at 34. PMH: OA, Skin CA, Hyperlipidemia, HTN, Anxiety PSH: Colonoscopy (2021), Hernia Repair, L Knee Arthroscopy SH: Former tobacco user, No ETOH abuse, No illicit drug use FH: Non contributory All: See list Medications include Neurontin, Tyl, ASA REVIEW OF ORGAN SYSTEMS: CONSTITUTIONAL: No fevers or chills. No recent weight loss. NEUROLOGICAL: + numbness and tingling along the distal extremities. No seizure disorders or headaches. MUSCULOSKELETAL: + pain PSYCHIATRIC: Denies current depression or suicidal thoughts. Physical Examinations : Constitutional : Cooperative , not in acute distress . Neurologic : Cranial nerve II to XII intact. No focal neurological deficits. Psychiatric : alert & oriented x 3. Matching mood & appropriate affect. Judgment & insight intact. Musculoskeletal : Cervical Spine Motor strength in the deltoid and biceps: Normal right side. Normal Left side Motor strength biceps and the wrist extensors: Normal right side . Normal left side Motor strength in the triceps muscle: Normal right side. Normal left side Deep tendon reflexes: Normal at the biceps. Normal at Brachioradialis. Normal at triceps Vertebral body tenderness to deep palpation over Cervical facet loading test: positive bilaterally Spurling test: positive bilaterally Neck distraction test: positive bilaterally Shawn sign: positive bilaterally Lumbar spine Motor strength lower extremities ,thigh and legs 5/5 Right side , 5/5 Left side Deep tendon reflexes : Normal Knee Jerk. Normal Ankle Jerk Vertebral body tenderness over C5 Rose Test positive BL C5-C6 Lumbar facet Loading Test: positive Right / positive Left Range of motion of the lumbar spine Flexion 30 degrees, extension 10 degrees Straight Leg Raise test: Left/ Right positive at degrees James test: positive right / positive left. Severe tenderness over the Sacroiliac joint on the Right / Left sides Leonidaslen test: positive bilaterally Seated flexion test: positive bilaterally. Sacral spine : Severe tenderness over the Sacroiliac joint: right side / left side Range of motion: Flexion of the lumbar spine <60 degrees Range of motion: Extension of the lumbar spine <20 degrees Gaenslen's Test positive James test: positive right side / left side Thigh Thrust Test Sacral Thrust Test Imaging: MRI non contrast cervical spine from 04/02/25 reviewed Assessment/ Plan : C4-C6 radiculopathy Recommendation of NONA C5-C6 #1. Risks, benefits of procedure discussed and patient verbalized understanding. Admits to anti- coagulant use or medical history of diabetes. Protocol for discontinuation/ continuation of medications binta procedure discussed. Minimal anesthesia including Fentanyl and Versed if clinically indicated. All questions answered. I have spent greater than 30 minutes on patient care today. Dr Turk was available by phone for the evaluation of this patient. The time was used to review the medical records including relevant urine studies and Prescription history (MAPs), review of the available imaging, evaluation and examination of the patient, coordination of care with the medical staff and if applicable referring physicians, as well as creation of the medical record PQRS Narrative: Smoking Status Former smoker Home Medications: Ambulatory Orders Atorvastatin [Lipitor] 80 mg PO HS 03/25/17 Gabapentin [Neurontin] 800 mg PO 09/12/20 lisinopriL [Zestril] 20 mg PO [facility] 09/12/20 Aspirin [Adult Low Dose Aspirin EC] 81 mg PO [facility] 06/15/22 Doxazosin [Cardura] 8 mg PO HS 06/15/22 Sertraline [Zoloft] 50 mg PO QA 06/15/22 diazePAM [Valium] 5 mg PO QA 06/15/22 traZODone HCL [Desyrel] 50 mg PO 06/15/22 Controlled Substance Measures - Controlled Substance Measures Is patient prescribed a controlled substance at discharge?: No
== END ==
LOC: PNWHC3 12:33
PROVIDERS: ATTEND Specialist
DX: M47.22 Other spondylosis with radiculopathy, cervical region (principal); Z88.6 Allergy status to analgesic agent; Z87.891 Personal history of nicotine dependence
CPT/HCPCS: 99211

== ENCOUNTER 2025-06-01 09:58 | Day surgery (SDC) | payer OTHER ==
[2025-05-28 13:52] VITALS: BMI 24.9
[~2025-06-01 09:58] MED LIST changes: -IODINE/POTASSIUM IODIDE 14 ML BOTTLE ONE; +LACTATED RINGERS 1,000 ML IV SCH
[2025-06-01 11:37] LABS: Glucose,Whole Blood 109 mg/dL (70-110)
[2025-06-01 11:50] VITALS: TEMP 97
[2025-06-01] MEDS ORDERED: IOPAMIDOL M200 10 ML VIAL ONE (12:45)
[2025-06-01] MEDS ORDERED: DEXAMETHASONE SOD PHOSPHATE 10 MG/ML 1 ML VIAL ONE (12:45)
--- NOTE | 2025-06-01 12:54 | P.PCN ---
Date of Procedure: 06/01/25 Procedure(s) Performed: . PROCEDURE 1. Cervical epidural steroid injection under fluoroscopic guidance, C5-6 (fluoroscopy images available in the radiology department ) 2. Cervical epidurogram. PREOPERATIVE DIAGNOSIS: 1- Cervical Degenerative Disc Diseases 2- Cervical radiculopathy., 3-cervical spinal stenosis POSTOPERATIVE DIAGNOSIS: : 1- Cervical Degenerative Disc Diseases , 2- Cervical radiculopathy. 3-cervical spinal stenosis ANESTHESIA: Local anesthesia with lidocaine 1% 3 ml only EBL 0 PROCEDURE INDICATION: The patient with neck pain and radiculitis unresponsive to conservative treatment consents for procedure. PROCEDURE DESCRIPTION / TECHNIQUE: The patient was seen and identified in the preoperative area. Risks, benefits, complications, including but not limited to infections ,bleeding , allergic reactions to the medications ,and not complete pain releife, and alternatives were discussed with the patient, the patient agreed to proceed with the procedure and signed the consent. Patient was taken to the OR and time out was completed. The patient was placed in the prone position on the procedure table. A pillow was placed under the patients chest to increase the cervical interlaminar space. The cervical area was prepped and draped in the usual sterile fashion. Vital signs were closely monitored during the procedure. Using anterior-posterior fluoroscopy, the C5-6 interlaminar space was identified and the skin over this site was marked and then infiltrated with 1% lidocaine subcutaneously. Subsequently, a 20-gauge 3-1/2-inch Tuohy epidural needle was inserted and advanced toward the epidural space by means of the ``hanging-drop technique and guided by AP and lateral fluoroscopy. The correct needle position in the epidural space was verified with the injection of 2 mL of the water soluble contrast dye Isovue-200 and observing an excellent epidurogram with the epidural spread of the dye, after negative aspiration for blood and CSF and in the absence of paresthesias. then, mixture containing 10 mg Dexamethasone and 2 ml of preservative-free normal saline injected and a washout of epidurogram was seen. Needle was withdrawn intact, skin was cleansed, and bandages were applied. Complications= none. Disposition= patient was placed in supine position and transferred to the recovery room area in stable condition and there was no evidence of upper or lower extremity motor or sensory deficit after the procedure patient was discharged from recovery room after discharge criteria met and home discharge instructions was given by the staff and patient will follow with the pain clinic in 2-4 weeks
[2025-06-01 13:04] VITALS: RESP 16
[2025-06-01 13:14] VITALS: BP 133/68; PULSE 71
--- NOTE | 2025-06-01 13:26 | FL ---
EXAMINATION TYPE: FL guided pain mgmt statistic DATE OF EXAM: 06/01/2025 12:56 PM COMPARISON: Pre Operative Images if available both CT/MRI or plain film CLINICAL INDICATION: Male, 75 years old with history of LINO; TECHNIQUE: FL guided pain mgmt statistic, multiple fluoroscopic images provided for procedure. DAP: 0.68845 mGym2 Gycm2 uGym2 cGycm2 or equivalent. FINDINGS: Fluoroscopic images during injection for pain management demonstrate multilevel degeneration changes throughout the spine. No evidence for fracture. No acute process identified. IMPRESSION: 1. No evidence for intraoperative complication. 2. Please see the operative/procedural note for further details. [facility], , 06/01/2025 1:24 PM
== END 2025-06-01 13:30 | disposition home or self-care (01) ==
LOC: ORPAIN 09:58
PROVIDERS: ATTEND Specialist
DX: M50.122 Cervical disc disorder at C5-C6 level with radiculopathy (principal); M48.02 Spinal stenosis, cervical region; Z79.82 Long term (current) use of aspirin; Z79.1 Long term (current) use of non-steroidal anti-inflammatories (NSAID)
CPT/HCPCS: 62321; J1100; Q9966